=== PATIENT | female | born 1970 | race Caucasian/White ===

== ENCOUNTER 2016-12-15 05:16 | Inpatient (IN) | payer OTHER ==
[2016-12-15] VITALS (10 sets, daily range): BP systolic 106–136; BP diastolic 57–71; PULSE 68–108; RESP 18–29; TEMP 96.8–98.7; O2SAT 97–100
[~2016-12-15] VITALS: Ht 152.4 cm; Wt 70.5 kg
[~2016-12-15 05:16] MED LIST: OXYC-360 PO; PREN0.01 PO; SYNT112T PO
--- NOTE | 2016-12-15 06:40 | PD ---
HPI Chief Complaint: Chest Pain Time Seen by Provider: 06:39 Travel History International Travel<30 days: No Contact w/Intl Traveler<30days: No Traveled to known affect area: No History of Present Illness HPI 45-year-old female came to the emergency room with history of gastric pain radiating to the left side of her chest under the breast since 9 PM. Patient says she was feeling fine before that. The pain progressively Worsening and then she decided to come to the emergency room. She has been nauseous as well. She thinks her blood sugar might be u. Patient is diabetic. No aggravating or relieving factor. Patient has never had this kind of pain in the past. She looks very uncomfortable when I examined her. She was tachycardic in triage. [facility] Past Medical History Narrative Medical List of her home medications reviewed from the nursing note. Diabetes: Yes Past Surgical History Section: Yes (2 YEARS AGO) Social History Alcohol Use: Yes (WEEKENDS) Tobacco Use: No Substance Use: No Allergies-Medications (Allergen,Severity, Reaction): Coded Allergies: Demerol (Verified Allergy, Severe, Hives, 12/15/16) Lisinopril (Verified Allergy, Intermediate, COUGH, 12/15/16) Comments List of her allergies reviewed from the nursing note. Reported Meds & Prescriptions Reported Meds & Active Scripts Active Reported Losartan (Losartan Potassium) 25 Mg Tab 25 Mg PO DAILY Novolog Inj (Insulin Aspart) 1,000 Unit/10 Ml Vial 0 SQ DIRECTED Sliding Scale as directed. Lovastatin 10 Mg Tab 10 Mg PO DAILY Synthroid (Levothyroxine Sodium) 150 Mcg Tab 150 Mcg PO DAILY Narrative Medication List of her home medications reviewed from the nursing note. Review of Systems Except as stated in HPI: all other systems reviewed are Neg Physical Exam Narrative GENERAL: Awake, alert, anxious, significant distress SKIN: Focused skin assessment warm/dry. HEAD: Atraumatic. Normocephalic. EYES: Pupils equal and round. No scleral icterus. No injection or drainage. ENT: No nasal bleeding or discharge. Mucous membranes pink and moist. NECK: Trachea midline. No JVD. CARDIOVASCULAR: Regular rate and rhythm. No murmur appreciated. RESPIRATORY: No accessory muscle use. Clear to auscultation. Breath sounds equal bilaterally. GASTROINTESTINAL: Abdomen soft, non-tender, nondistended. Hepatic and splenic margins not palpable. MUSCULOSKELETAL: No obvious deformities. No clubbing. No cyanosis. No edema. NEUROLOGICAL: Awake and alert. No obvious cranial nerve deficits. Motor grossly within normal limits. Normal speech. PSYCHIATRIC: Appropriate mood and affect; insight and judgment normal. Data Data Last Documented VS Orders Electrocardiogram (12/15/16 ) Electrocardiogram (12/15/16 06:39) Basic Metabolic Panel (Bmp) (12/15/16 06:39) Ckmb (Isoenzyme) Profile (12/15/16 06:39) Complete Blood Count With Diff (12/15/16 06:39) Magnesium (Mg) (12/15/16 06:39) Prothrombin Time / Inr (Pt) (12/15/16 06:39) Act Partial Throm Time (Ptt) (12/15/16 06:39) Troponin I (12/15/16 06:39) Chest, Single Ap (12/15/16 06:39) Ecg Monitoring (12/15/16 06:39) Bilateral Bp Monitoring (12/15/16 06:39) Iv Access Insert/Monitor (12/15/16 06:39) Oximetry (12/15/16 06:39) Oxygen Administration (12/15/16 06:39) Sodium Chloride 0.9% Flush (Ns Flush) (12/15/16 06:45) D-Dimer (12/15/16 06:39) Morphine Inj (Morphine Inj) (12/15/16 07:30) Ondansetron Inj (Zofran Inj) (12/15/16 07:30) Sodium Chlor 0.9% 1000 Ml Inj (Ns 1000 M (12/15/16 07:30) Insulin Human Regular Inj (Novolin R Inj (12/15/16 08:00) Ct Pulmonary Angiogram (12/15/16 07:49) Iohexol 350 Inj (Omnipaque 350 Inj) (12/15/16 08:19) Admit Order (Ed Use Only) (12/15/16 08:57) Labs MDM Medical Decision Making Medical Screen Exam Complete: Yes Emergency Medical Condition: Yes Medical Record Reviewed: Yes Interpretation(s) Twelve-lead EKG was reviewed by me. Normal sinus rhythm, left axis deviation, nonspecific ST-T wave changes, tachycardia. Heart rate of 103 bpm Differential Diagnosis ACS, non-STEMI, PE, nonspecific chest Narrative Course 7:20 AM awaiting for the blood test result. Chest x-rays within normal limit. Case will be signed over to the oncoming ER physician. Procedures EKG Prior to Arrival: Karuna Blake Insulin Detemir Inj (Levemir Inj)1,000 unit/ 10 ML Vial30 Units SQ DAILY #0 VIAL Ref 0 levemir 25 units sq in morning. Prov:Rob Seo MD 12/20/16 Pantoprazole 40 Mg Tab40 Mg PO Q12HR #60 TAB Prov:Rob Seo MD 12/20/16 Kailash Clemente MD December 15, 2016 06:40 Concent Red Cell Distribution Width 15.4 % Platelet Count 434 TH/MM3 Mean Platelet Volume 8.0 FL Neutrophils (%) (Auto) 69.2 % Lymphocytes (%) (Auto) 19.6 % Monocytes (%) (Auto) 9.3 % Eosinophils (%) (Auto) 0.8 % Basophils (%) (Auto) 1.1 % Neutrophils # (Auto) 8.2 TH/MM3 Lymphocytes # (Auto) 2.3 TH/MM3 Monocytes # (Auto) 1.1 TH/MM3 Eosinophils # (Auto) 0.1 TH/MM3 Basophils # (Auto) 0.1 TH/MM3 CBC Comment DIFF FINAL Differential Comment MDM Medical Decision Making Medical Screen Exam Complete: Yes Emergency Medical Condition: Yes Medical Record Reviewed: Yes Interpretation(s) Twelve-lead EKG was reviewed by me. Normal sinus rhythm, left axis deviation, nonspecific ST-T wave changes, tachycardia. Heart rate of 103 bpm Differential Diagnosis ACS, non-STEMI, PE, nonspecific chest Narrative Course 7:20 AM awaiting for the blood test result. Chest x-rays within normal limit. Case will be signed over to the oncoming ER physician. Procedures EKG Prior to Arrival: Kailash Aleman MD December 15, 2016 06:40
[2016-12-15] MEDS ORDERED: LOVA10TA PO (06:41)
[2016-12-15] MEDS ORDERED: NOVOLOGP2 SQ (06:41)
[2016-12-15] MEDS ORDERED: LEVEMIR SQ (06:41)
[2016-12-15] MEDS ORDERED: LEVO.15 PO (06:41)
[2016-12-15] MEDS ORDERED: SODIUM CHLORIDE 0.9% FLUSH 10 ML FLUSH IVF PRN (06:45)
--- NOTE | 2016-12-15 06:52 | RADRPT ---
EXAM DATE/TIME: 12/15/2016 06:50 [facility] COMPARISON: No previous studies available for comparison. INDICATIONS : Medial chest pain with nausea x 1 day. MEDICAL HISTORY : Diabetes mellitus type I. SURGICAL HISTORY : None. ENCOUNTER: Initial ACUITY: 1 day PAIN SCORE: 7/10 LOCATION: Bilateral chest FINDINGS: A single view of the chest demonstrates the lungs to be symmetrically aerated without evidence of mas s, infiltrate or effusion. The cardiomediastinal contours are unremarkable. Osseous structures are intact. CONCLUSION: No acute disease. Gómez Chaudhry MD on December 15, 2016 at 6:50 Board Certified Radiologist. This report was verified electronically.
[2016-12-15 06:57] LABS: AUTOMATED NEUTROPHIL # 8.2 TH/MM3 (1.8-7.7); BASOPHIL # 0.1 TH/MM3 (0-0.2); BASOPHIL % 1.1 % (0.0-2.0); EOSINOPHIL # 0.1 TH/MM3 (0-0.4); EOSINOPHIL % 0.8 % (0.0-4.0); HEMATOCRIT 38.3 % (35.0-46.0); HEMO FLAGS DIFF FINAL; LYMPH % 19.6 % (9.0-44.0); LYMPHOCYTE # 2.3 TH/MM3 (1.0-4.8); MEAN CELL VOLUME 87.9 FL (80.0-100.0); MEAN CORPUSCULAR HEMOGLOBIN 27.8 PG (27.0-34.0); MEAN CORPUSCULAR HGB CONC 31.7 % (32.0-36.0); MONO % 9.3 % (0.0-8.0); NEUT % 69.2 % (16.0-70.0); PLATELET COUNT 434 TH/MM3 (150-450); RED BLOOD COUNT 4.36 MIL/MM3 (4.00-5.30); RED CELL DISTRIBUTION WIDTH 15.4 % (11.6-17.2); WHITE BLOOD COUNT 11.9 TH/MM3 (4.0-11.0)
[2016-12-15 07:17] LABS: INTERNATIONAL NORMALIZED RATIO 0.9 RATIO
[2016-12-15 07:26] LABS: ANION GAP 27 MEQ/L (5-15); BICARBONATE 9.7 MEQ/L (21.0-32.0); BLOOD UREA NITROGEN 15 MG/DL (7-18); CHLORIDE 94 MEQ/L (98-107); GLOMERULAR FILTRATION RATE 64 ML/MIN (>89); MAGNESIUM 2.1 MG/DL (1.5-2.5); SODIUM (NA) 131 MEQ/L (136-145)
[2016-12-15] MEDS ORDERED: ONDANSETRON HCL 4 MG/2 ML VIAL IV PUSH ONE (07:30)
[2016-12-15] MEDS ORDERED: MORPHINE SULFATE 4 MG/ML INJ IV PUSH ONE (07:30)
[2016-12-15] MEDS ORDERED: SODIUM CHLOR 0.9% 1000 ML INJ 1,000 ML IV ONE (07:30)
[2016-12-15 07:41] LABS: CREATINE KINASE 75 U/L (26-192)
[2016-12-15 07:51] LABS: APTT (PATIENT) 26.1 SEC (24.3-30.1)
[2016-12-15] MEDS ORDERED: INSULIN HUMAN REGULAR 1,000 UNITS/10 ML VIAL SQ ONE (08:00)
[2016-12-15] MEDS ORDERED: IOHEXOL 350 MG/ML 10 ML VIAL (for RAD DIAG) IV ONE (08:19)
--- NOTE | 2016-12-15 08:32 | RADRPT ---
EXAM DATE/TIME: 12/15/2016 08:13 [facility] COMPARISON: CHEST SINGLE AP, December 15, 2016, 6:50. INDICATIONS : Left sided chest pain today. IV CONTRAST: 69 cc Omnipaque 350 (iohexol) IV RADIATION DOSE: 22.96 CTDIvol (mGy) MEDICAL HISTORY : diabetes SURGICAL HISTORY : section. ENCOUNTER: Initial ACUITY: 1 day PAIN SCALE: 7/10 LOCATION: Left lower chest TECHNIQUE: Volumetric scanning of the chest was performed using a pulmonary embolism protocol MIP images were re constructed. Using automated exposure control and adjustment of the mA and/or kV according to patien t size, radiation dose was kept as low as reasonably achievable to obtain optimal diagnostic quality images. FINDINGS: PULMONARY ARTERIES: No filling defects are seen in the pulmonary arteries through the segmental level. LUNGS: There is no consolidation or pneumothorax . No concerning pulmonary nodule is visualized. PLEURAE: There is no pleural thickening or pleural effusion. MEDIASTINUM: There is good visualization of the great vessels of the middle mediastinum. No evidence of mediastin al or hilar adenopathy/mass. MUSCULOSKELETAL: No acute finding is identified. MISCELLANEOUS: The visualized upper abdominal organs demonstrate no acute abnormality. CONCLUSION: 1. No PE is visualized. 2. Additionally, no acute finding is identified within the chest. Please note that the complete lung bases were not imaged on this examination. Geovanny Camilo MD on December 15, 2016 at 8:27 Board Certified Radiologist. This report was verified electronically.
--- NOTE | 2016-12-15 08:57 | PD ---
Physical Exam Date Seen by Provider: December 15, 2016 Narrative Patient was signed out to me at 7 AM ending a chest pain workup. Patient reports the onset of chest pain about 9 PM. It is left-sided. It has been getting progressively worse. Patient does state that her pain is better following morphine. Data Data Last Documented VS Vital Signs Date Time Temp Pulse Resp B/P Pulse Ox O2 Delivery O2 Flow Rate FiO2 12/15/16 06:42 102 21 106/57 99 Room Air 12/15/16 05:18 97.8 Orders Electrocardiogram (12/15/16 ) Electrocardiogram (12/15/16 06:39) Basic Metabolic Panel (Bmp) (12/15/16 06:39) Ckmb (Isoenzyme) Profile (12/15/16 06:39) Complete Blood Count With Diff (12/15/16 06:39) Magnesium (Mg) (12/15/16 06:39) Prothrombin Time / Inr (Pt) (12/15/16 06:39) Act Partial Throm Time (Ptt) (12/15/16 06:39) Troponin I (12/15/16 06:39) Chest, Single Ap (12/15/16 06:39) Ecg Monitoring (12/15/16 06:39) Bilateral Bp Monitoring (12/15/16 06:39) Iv Access Insert/Monitor (12/15/16 06:39) Oximetry (12/15/16 06:39) Oxygen Administration (12/15/16 06:39) Sodium Chloride 0.9% Flush (Ns Flush) (12/15/16 06:45) D-Dimer (12/15/16 06:39) Morphine Inj (Morphine Inj) (12/15/16 07:30) Ondansetron Inj (Zofran Inj) (12/15/16 07:30) Sodium Chlor 0.9% 1000 Ml Inj (Ns 1000 M (12/15/16 07:30) Insulin Human Regular Inj (Novolin R Inj (12/15/16 08:00) Ct Pulmonary Angiogram (12/15/16 07:49) Iohexol 350 Inj (Omnipaque 350 Inj) (12/15/16 08:19) Labs Laboratory Tests Test 12/15/16 06:41 White Blood Count 11.9 TH/MM3 Red Blood Count 4.36 MIL/MM3 Hemoglobin 12.1 GM/DL Hematocrit 38.3 % Mean Corpuscular Volume 87.9 FL Mean Corpuscular Hemoglobin 27.8 PG Mean Corpuscular Hemoglobin 31.7 % Concent Red Cell Distribution Width 15.4 % Platelet Count 434 TH/MM3 Mean Platelet Volume 8.0 FL Neutrophils (%) (Auto) 69.2 % Lymphocytes (%) (Auto) 19.6 % Monocytes (%) (Auto) 9.3 % Eosinophils (%) (Auto) 0.8 % Basophils (%) (Auto) 1.1 % Neutrophils # (Auto) 8.2 TH/MM3 Lymphocytes # (Auto) 2.3 TH/MM3 Monocytes # (Auto) 1.1 TH/MM3 Eosinophils # (Auto) 0.1 TH/MM3 Basophils # (Auto) 0.1 TH/MM3 CBC Comment DIFF FINAL Differential Comment Prothrombin Time 10.0 SEC Prothromb Time International 0.9 RATIO Ratio Activated Partial 26.1 SEC Thromboplast Time D-Dimer Quantitative (PE/DVT) 0.79 MG/L FEU Sodium Level 131 MEQ/L Potassium Level 5.0 MEQ/L Chloride Level 94 MEQ/L Carbon Dioxide Level 9.7 MEQ/L Anion Gap 27 MEQ/L Blood Urea Nitrogen 15 MG/DL Creatinine 0.94 MG/DL Estimat Glomerular Filtration 64 ML/MIN Rate Random Glucose 542 MG/DL Calcium Level 9.4 MG/DL Magnesium Level 2.1 MG/DL Total Creatine Kinase 75 U/L Troponin I LESS THAN 0.02 NG/ML MDM Supervised Visit with DARRYL: No Narrative Course CBC & BMP Diagram 12/15/16 06:41 Initial cardiac enzymes are negative. D-dimer is 0.79. She has subsequently had a CT to rule out PE. It is negative. The patient has been given insulin for her glucose of 542. Patient is amenable to admission to the chest pain center for further evaluation. Diagnosis Primary Impression: Chest pain Qualified Code: R07.9 - Chest pain, unspecified type Admitting Information Admitting Physician Requests: Observation Condition: Stable Mague Ayers MD December 15, 2016 08:57
[2016-12-15] MEDS ORDERED: SODIUM CHLOR 0.9% 1000 ML INJ 1,000 ML IV SCH (11:06)
[2016-12-15] MEDS ORDERED: GLUCAGON 1 MG/ML VIAL IM/SQ PRN (11:30)
[2016-12-15] MEDS ORDERED: DEXTROSE 50% IN WATER 50 ML VIAL(D50) IV PRN (11:30)
[2016-12-15] MEDS ORDERED: MAGNESIUM HYDROXIDE SUSP 30 ML CUP PO PRN (12:15)
[2016-12-15] MEDS ORDERED: TEMAZEPAM 15 MG CAP PO PRN (12:15)
[2016-12-15] MEDS ORDERED: SODIUM CHLORIDE 0.9% FLUSH 10 ML FLUSH IV FLUSH PRN (12:15)
[2016-12-15] MEDS ORDERED: NALOXONE HCL 0.4 MG/ML AMP IV PRN (12:15)
[2016-12-15 13:16] LABS: HEMOGLOBIN A1a 1.9 %; HEMOGLOBIN Ao 74.4 %; HEMOGLOBIN LA1C 4.4 %
[2016-12-15] MEDS ORDERED: LOSA25TA PO (13:20)
[2016-12-15 13:36] LABS: BLOOD, URINE SMALL (NEG); COMMENT (UR) CULT NOT INDICATED; CULTURE IF INDICATED CULT NOT INDICATED; GLUCOSE,URINE 1000 mg/dL (NEG); KETONE, URINE 150 mg/dL (NEG); MUCUS URINE FEW /lpf (OCC); NITRITE,URINE NEG (NEG); SQUAMOUS EPITHELIAL CELL URINE 1 /hpf (0-5); URINE COLOR LIGHT-YELLOW (YELLW/STRAW)
[2016-12-15 13:40] LABS: BICARBONATE 10.5 MEQ/L (21.0-32.0); POTASSIUM 4.7 MEQ/L (3.5-5.1)
--- NOTE | 2016-12-15 13:42 | HHI.HP ---
HPI Service [facility] Hospitalists Primary Care Physician Troy Anderson M.D. Admission Diagnosis chest pain Chief Complaint: chest pain Travel History International Travel<30 Days: No Contact w/Intl Traveler <30 Da: No Traveled to Known Affected Are: No History of Present Illness Patient is a pleasant 45-year-old female with history of type 1 diabetes 25 years. Patient was seen by her primary care physician, Dr. Anderson, last week. Patient had a battery of laboratory data performed. Patient reports that her hemoglobin A1c was 10.3. I cannot find this in her [facility] records. However, last hemoglobin A1c (07/20/15 ) was 10.2. Patient's fasting glucose was elevated at 424 (12/04/16), but patient's CO2 was normal at 24. Patient takes NovoLog 8 units before breakfast and 10 units before lunch and dinner. Patient also takes Levemir 15 units in the a.m. and 20 units in the p.m. At last appointment with Dr. Anderson. Patient had stated that she wants to get back in with endocrinology, specifically she wishes to see Cassidy STONE at Dr. Hoffman office. Apparently, patient has previously followed with Cassidy STONE. Patient states that she previously used an insulin pump but this was prior to her last 8 years ago. Patient presented to the ER yesterday evening with complaint of chest pain. Patient states that the chest pain was at her lower sternum and radiated to her left chest. There was no radiation to her shoulder, arm, or jaw. Patient states that the episode started at 9 PM. It was intermittent lasting approximately 15 minutes, and did not resolve until 5 AM this morning when she received morphine in the ER. Patient denies previous such episodes. Patient describes the pain as moderate and associated with nausea and shortness of breath. Patient feels the shortness of breath may have been anxiety. Initially patient attributed the chest pain to indigestion as she was at a graduation event yesterday. Patient took aspirin and Tums with only mild relief. Patient denies any palliating factors. Patient denies any provoking factors patient denies associated vomiting or diaphoresis. Patient was initially admitted to the chest pain center. Dr. Garrido, the attending physician for the chest pain center, noted that the patient's labs were consistent with diabetic ketoacidosis with elevated blood sugar and low CO2. He requested that the patient be transferred to my service and I agreed. Review of Systems Constitutional: DENIES: Diaphoretic episodes, Fatigue, Fever, Weight gain, Weight loss, Chills, Dizziness, Change in appetite, Night Sweats Endocrine: DENIES: Abnorml menstrual pattern, Heat/cold intolerance, Polydipsia , Polyuria, Polyphagia Eyes: DENIES: Blurred vision, Diplopia, Eye inflammation, Eye pain, Vision loss , Photosensitivity, Double Vision Ears, nose, mouth, throat: DENIES: Tinnitus, Hearing loss, Vertigo, Nasal discharge, Oral lesions, Throat pain, Hoarseness, Ear Pain, Running Nose, Epistaxis, Sinus Pain, Toothache, Odynophagia Respiratory: DENIES: Apneas, Cough, Snoring, Wheezing, Hemoptysis, Sputum production, Shortness of breath Cardiovascular: COMPLAINS OF: Chest pain, DENIES: Palpitations, Syncope, Dyspnea on Exertion, PND, Lower Extremity Edema, Orthopnea, Claudication Gastrointestinal: DENIES: Abdominal pain, Black stools, Bloody stools, BRB per rectum, Constipation, Diarrhea, GERD, Nausea, Reflux, Vomiting, Difficulty Swallowing, Anorexia Genitourinary: DENIES: Urinary frequency, Urinary incontinence, Urgency, Hematuria, Dysuria, Nocturia Musculoskeletal: DENIES: Joint pain, Muscle aches, Stiffness, Joint Swelling, Back pain, Neck pain Integumentary: DENIES: Abnormal pigmentation, Pruritus, Rash, Nail changes, Breast masses, Breast skin changes, Nipple discharge Hematologic/lymphatic: DENIES: Bruising, Lymphadenopathy Immunologic/allergic: DENIES: Eczema, Urticaria Neurologic: DENIES: Abnormal gait, Headache, Localized weakness, Paresthesias, Seizures, Speech Problems, Tremor, Poor Balance Psychiatric: COMPLAINS OF: Anxiety, DENIES: Confusion, Mood changes, Depression, Hallucinations, Agitation, Suicidal Ideation, Homicidal Ideation, Delusions, History of Bipolar, History of Schizophrenia Past Family Social History Past Medical History 1) diabetes, type 125 years - Recently referred to endocrinology by her PCP, patient has previously seen Cassidy Martell PA-C in the office of Dr. 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 SKIN: No rashes, ecchymoses or lesions. Cool and dry. HEAD: Atraumatic. Normocephalic. No temporal or scalp tenderness. EYES: Pupils equal round and reactive. Extraocular motions intact. No scleral icterus. No injection or drainage. ENT: Nose without bleeding, purulent drainage or septal hematoma. Throat without erythema, tonsillar hypertrophy or exudate. Uvula midline. Airway patent. NECK: Trachea midline. No JVD or lymphadenopathy. Supple, nontender, no meningeal signs. CARDIOVASCULAR: Regular rate and rhythm without murmurs, gallops, or rubs. RESPIRATORY: Clear to auscultation. Breath sounds equal bilaterally. No wheezes , rales, or rhonchi. GASTROINTESTINAL: Abdomen soft, non-tender, nondistended. No hepato-splenomegaly , or palpable masses. No guarding. MUSCULOSKELETAL: Extremities without clubbing, cyanosis, or edema. No joint tenderness, effusion, or edema noted. No calf tenderness. Negative Homans sign bilaterally. NEUROLOGICAL: Awake and alert. Cranial nerves II through XII intact. Motor and sensory grossly within normal limits. Five out of 5 muscle strength in all muscle groups. Normal speech. Laboratory Laboratory Tests Test 12/15/16 12/15/16 06:41 09:40 White Blood Count 11.9 Red Blood Count 4.36 Hemoglobin 12.1 Hematocrit 38.3 Mean Corpuscular Volume 87.9 Mean Corpuscular Hemoglobin 27.8 Mean Corpuscular Hemoglobin 31.7 Concent Red Cell Distribution Width 15.4 Platelet Count 434 Mean Platelet Volume 8.0 Neutrophils (%) (Auto) 69.2 Lymphocytes (%) (Auto) 19.6 Monocytes (%) (Auto) 9.3 Eosinophils (%) (Auto) 0.8 Basophils (%) (Auto) 1.1 Neutrophils # (Auto) 8.2 Lymphocytes # (Auto) 2.3 Monocytes # (Auto) 1.1 Eosinophils # (Auto) 0.1 Basophils # (Auto) 0.1 CBC Comment DIFF FINAL Differential Comment Prothrombin Time 10.0 Prothromb Time International 0.9 Ratio Activated Partial 26.1 Thromboplast Time D-Dimer Quantitative (PE/DVT) 0.79 Sodium Level 131 Potassium Level 5.0 Chloride Level 94 Carbon Dioxide Level 9.7 Anion Gap 27 Blood Urea Nitrogen 15 Creatinine 0.94 Estimat Glomerular Filtration 64 Rate Random Glucose 542 Calcium Level 9.4 Magnesium Level 2.1 Total Creatine Kinase 75 Troponin I LESS THAN 0.02 LESS THAN 0.02 Result Diagram: 12/15/1641 12/15/[address] Angiography 12/15/16 0749 Signed Impressions: Service Date/Time: Thursday, December 15, 2016 08:13 - CONCLUSION: 1. No PE is visualized. 2. Additionally, no acute finding is identified within the chest. Please note that the complete lung bases were not imaged on this examination. Geovnany Camilo MD Chest X-Ray 12/15/16 0639 Signed Impressions: Service Date/Time: Thursday, December 15, 2016 06:50 - CONCLUSION: No acute disease. Gómez Chaudhry MD Septic Shock Reassessment Heart: Regular rate and rhythm Lungs: Clear Skin: Warm Peripheral Pulses: Bounding Right Radial Bounding Left Radial Bounding Right Popliteal Bounding Left Popliteal Bounding Right Dorsalis Pedis Bounding Left Dorsalis Pedis Bounding Right Posterior Tibial Bounding Left Posterior Tibial Capillary Refill: Brisk Assessment and Plan Problem List: (1) DKA (diabetic ketoacidoses) Status: Acute Plan: - Patient's blood sugars have improved - Patient still with low CO2 and anion gap - pt will require insulin drip in the ICU until CO2 and anion gap have resolved to normal - case d/w [facility], Dr. Coughlin - I will initiate DKA protocol - Pt to receive insulin gtt per protocol - pt to receive IVFs per protocol - pt to receive electrolyte replacement per protocol (2) Chest pain Status: Acute Plan: - Obtain serial cardiac enzymes - Obtain serial EKGs - Patient will need Lexiscan once medically stabilized - Obtain fasting lipid panel (3) HTN (hypertension) Status: Acute Plan: - Continue losartan (4) Hypothyroid Status: Chronic Plan: - Continue Synthroid Physician Certification 2 Midnight Certification Type: Admission for Inpatient Services Order for Inpatient Services The services are ordered in accordance with Medicare regulations or non- Medicare payer requirements, as applicable. In the case of services not specified as inpatient-only, they are appropriately provided as inpatient services in accordance with the 2-midnight benchmark. Estimated LOS (days): 3 3 days is the estimated time the patient will need to remain in the hospital, assuming treatment plan goals are met and no additional complications. Post-Hospital Plan: Home Problem Qualifiers (1) DKA (diabetic ketoacidoses): Qualified Code: E10.10 - Diabetic ketoacidosis without coma associated with type 1 diabetes mellitus (2) Chest pain: Qualified Code: R07.9 - Chest pain, unspecified type (3) HTN (hypertension): Qualified Code: I10 - Essential hypertension (4) Hypothyroid: Qualified Code: E03.9 - Hypothyroidism, unspecified type Charlie Brady DO December 15, 2016 13:42
[2016-12-15 13:45] LABS: CREATINE KINASE 62 U/L (26-192)
[2016-12-15] MEDS: SODIUM CHLOR 0.9% 1000 ML INJ 1,000 ML IV SCH ×4 (13:47→22:56)
[2016-12-15] MEDS: DEXT 5%-NACL 0.9% 1000 ML INJ 1,000 ML IV SCH ×4 (13:47→23:18)
[2016-12-15] MEDS ORDERED: INSULIN REGULAR (IV INFUSION) 100 UNITS in SODIUM CHLORIDE 0.9% INJ 99 ML IV SCH ×2 (14:00→15:00)
[2016-12-15] MEDS ORDERED: CHLORHEXIDINE GLUCONATE 2 % 1 PACK (2 CLOTHS) TOP PRN ×2 (14:00→15:00)
[2016-12-15] MEDS ORDERED: MISCELLANEOUS NURSING INFORMATION XX SCH ×2 (14:00→15:00)
[2016-12-15] MEDS ORDERED: POTASSIUM CHLOR 20 MEQ PREMIX 100 ML IV PRN ×10 (14:00→15:00)
[2016-12-15] MEDS ORDERED: SODIUM PHOSPHATE INJ 15 MMOL in SODIUM CHLORIDE 0.9% INJ 100 ML IV PRN ×2 (14:00→15:00)
[2016-12-15] MEDS ORDERED: SODIUM BICARBONATE 8.4% SOLN 50 MEQ/50 ML VIAL IV PRN ×4 (14:00→15:00)
[2016-12-15 14:28] LABS: BLOOD GAS BASE EXCESS -20.6 mmol/L (-2-2); BLOOD GAS CARBOXYHEMOGLOBIN 1.9 % (0-4); BLOOD GAS HCO3 7 mmol/L (22-26); BLOOD GAS METHEMOGLOBIN 0.9 % (0-2); BLOOD GAS O2 HGB SATURATION 95 % (90-100); BLOOD GAS OXYGEN CONTENT 15.6 Vol % (12.0-20.0); BLOOD GAS PCO2 19 mmHg (38-42); BLOOD GAS PO2 115 mmHG (61-120); BLOOD GAS TOTAL HGB 11.5 G/DL (12.0-16.0); CRITICAL VALUE YES; DRAW SITE LT RADIAL; FIO2 21 %; NUMBER OF ARTERIAL PUNCTURES 1; OXYGEN DEVICE ROOM AIR; STAT NO; TEMP CORR TO 98.6; ULNAR PULSE PRESENT
[2016-12-15] MEDS ORDERED: POTASSIUM CHLOR 40 MEQ PREMIX 100 ML IV PRN ×2 (15:00)
--- NOTE | 2016-12-15 15:16 | EKG ---
Date Performed: 12/15/2016 Time Performed: 05:28:19 PTAGE: 45 years EKG: SINUS TACHYCARDIA LEFT ATRIAL ENLARGEMENT MARKED LEFT AXIS DEVIATION PATTERN CONSISTENT WIT H PULMONARY DISEASE ABNORMAL ECG NO PREVIOUS TRACING DOCTOR: Rob Garrido Interpretating Date/Time 12/15/2016 15:16:07
--- NOTE | 2016-12-15 15:39 | EKG ---
Date Performed: 12/15/2016 Time Performed: 09:43:12 PTAGE: 45 years EKG: SINUS TACHYCARDIA POSSIBLE LEFT ATRIAL ENLARGEMENT PATTERN CONSISTENT WITH PULMONARY DISEAS E LEFT ANTERIOR FASCICULAR BLOCK ABNORMAL ECG PREVIOUS TRACING : 12/15/2016 05. Since previous tracing, no significant change noted DOCTOR: Rob Garrido Interpretating Date/Time 12/15/2016 15:39:32
[2016-12-15] MEDS: PRAVASTATIN SOD 10 MG TAB PO SCH (15:43)
[2016-12-15] MEDS: ONDANSETRON HCL 4 MG/2 ML VIAL IVP PRN ×2 (15:44→23:02)
[2016-12-15] MEDS ORDERED: INSULIN ASPART SUPPLEMENTAL SCALE SQ SCH (16:00)
--- NOTE | 2016-12-15 16:00 | MB ---
cc: STEW ENCINAS M.D. DATE OF CONSULTATION: 12/15/2016. HISTORY OF PRESENT ILLNESS: The patient is a 45-year-old female with type 1 diabetes mellitus for over twenty years, hypothyroidism and hyperlipidemia who presented to the [facility] Emergency Department last evening with a complaint of chest pain. She is currently chest pain-free. Her laboratory data showed DKA with a blood sugar of 542 and anion gap of 27. In addition, the patient had a bicarb of 9.7 and was hyponatremic with sodium level of 131. In the emergency room, she was given a 1 liter bolus of normal saline in addition to 9 units of IV regular insulin at 8 o'clock this morning. She was admitted to Dr. Brady' service. The patient had repeat labs this afternoon, which still show DKA with anion gap of 23 and a bicarb of 10.5. ABG was performed on room air showed metabolic acidosis with a pH of 7.17, CO2 19, pAO2 115, bicarb of 7 and sats of 95%. Critical care medicine was consulted for critical care management. The patient was transferred to the intensive care unit where she will be started on insulin drip per DKA protocol. Currently she is asymptomatic. She denies any chest pain, shortness of breath, cough or any constitutional symptoms. In addition, she denies any nausea, vomiting or abdominal pain. Her troponins are negative x2. Her hemoglobin A1c is 10.3. Urinalysis is positive for glucose and ketones and negative for nitrite and leukocyte esterase. The patient underwent CT angiography this morning, which showed which showed no evidence of PE. Chest x-ray showed no acute disease as well. PAST MEDICAL HISTORY: Past medical history significant for: 1. Type 1 diabetes mellitus. 2. Hyperlipidemia. 3. Hypothyroidism. 4. Vitamin D deficiency. 5. Insomnia. 6. Migraines. PAST SURGICAL HISTORY: 1. Previous x2. 2. Previous tubal ligation. ALLERGIES: 1. DARVOCET. 1. LISINOPRIL. FAMILY HISTORY: Coronary artery disease runs in the family. SOCIAL HISTORY: Occasional drinker, nonsmoker. MEDICATIONS: Her medications include: 1. Losartan. 2. Insulin. 3. Levemir. 4. Synthroid. REVIEW OF SYSTEMS: As per the history of present illness. The rest of the review of systems is unremarkable. PHYSICAL EXAMINATION: GENERAL: This is a 45-year-old female lying in bed in no acute distress on room air oxygen. VITAL SIGNS: Afebrile, pulse of 111, blood pressure 113/59, saturation 100% on room air. HEAD, EYES, EARS, NOSE, THROAT: Normocephalic and atraumatic. Pupils equal, round and reactive to light and accommodation. Extraocular muscles intact. Conjunctivae are pink. Nonicteric sclerae. Oral mucosa within normal limits. NECK: The neck is supple. No jugular venous distention, adenopathy or thyromegaly. Trachea in the midline. CARDIOVASCULAR: Tachycardic. Normal S1 and S2. No murmurs, rubs or gallops noted. PULMONARY: Bilateral equal air entry. No rales or wheezing. ABDOMEN: The abdomen is soft, nontender and no distention. Positive bowel sounds. EXTREMITIES: No cyanosis, clubbing or edema. NEUROLOGIC: No focal sensory deficit. LABORATORY DATA: Sodium of 137, potassium 4.7, chloride 104, CO2 10, BUN 15, creatinine 0.92, glucose 267, hemoglobin A1c 10.3. Troponin less than 0.02 x2. WBC 11.9, hemoglobin 12.1, hematocrit 38, platelet count 434,000. RADIOGRAPHY: CT angiogram of the chest showed no evidence of PE. Chest x-ray showed no acute disease. IMPRESSION: 1. Diabetic ketoacidosis. 2. Anion gap metabolic acidosis. 3. History of type 1 diabetes mellitus. 4. Chest pain, resolved. 5. Mild leukocytosis likely stress-related. 6. Hypothyroidism. 7. Hyperlipidemia. PLAN: 1. Monitor neuro status. The patient is awake, alert. 2. Oxygen p.r.n. to maintain sats above 92%. 3. Monitor heart rate and blood pressure and maintain MAP greater 65 mmHg. 4. Monitor renal function, intake and output and electrolyte replacement per protocol. 5. IV fluids per DKA protocol. The patient will be on normal saline at 250 mL/hour. Once her blood sugar is less than 200, will begin D5 normal saline at 200/hour. 6. Start insulin drip per DKA protocol. 7. Monitor electrolytes, magnesium and phosphorus q. 6 hour and beta-hydroxybutyrate q. 12-hour. 8. Monitor for signs of infection, which include fever and WBC. Panculture if spikes a fever. Her leukocytosis is likely reactive. 9. Continue with Synthroid 115 micrograms p.o. daily. 10. Check a baseline TSH level. 11. Keep n.p.o. for now and place on Protonix 40 milligrams p.o. daily. 12. GI prophylaxis with Protonix 40 milligrams daily and DVT prophylaxis with SCDs and heparin subcu. Further recommendations will be based on the hospital course. MD LILIAN Dugan/MARINA /3:07 PM /3:48 PM
[2016-12-15 18:10] LABS: BETA-HYDROXYBUTYRATE 7.5 MMOL/L (0.00-0.39)
[2016-12-15 20:37] LABS: ANION GAP 13 MEQ/L (5-15); BICARBONATE 16.7 MEQ/L (21.0-32.0); BLOOD UREA NITROGEN 12 MG/DL (7-18); CHLORIDE 111 MEQ/L (98-107); GLOMERULAR FILTRATION RATE 59 ML/MIN (>89); MAGNESIUM 1.9 MG/DL (1.5-2.5); POTASSIUM 4.1 MEQ/L (3.5-5.1); SODIUM (NA) 141 MEQ/L (136-145)
[2016-12-15 20:55] LABS: CREATINE KINASE 59 U/L (26-192)
[2016-12-15] MEDS ORDERED: INSULIN DETEMIR 100 UNITS/ML VIAL SQ SCH (21:00)
[2016-12-15] MEDS: SODIUM CHLORIDE 0.9% FLUSH 10 ML FLUSH IV FLUSH SCH (21:00)
--- NOTE | 2016-12-15 21:22 | EKG ---
Date Performed: 12/15/2016 Time Performed: 20:38:15 PTAGE: 45 years EKG: SINUS TACHYCARDIA MARKED LEFT AXIS DEVIATION ABNORMAL ECG NO SIGNIFICANT CHANGE FROM PRIOR ELECTROCARDIOGRAM. PREVIOUS TRACING : 12/15/2016 09.43 DOCTOR: Marcos Ha Interpretating Date/Time 12/15/2016 21:20:45
[2016-12-15] MEDS: ACETAMINOPHEN 325 MG TAB PO PRN (23:01)
[2016-12-16] VITALS (12 sets, daily range): BP systolic 110–144; BP diastolic 56–76; PULSE 88–98; RESP 16–24; TEMP 98.2–99.4; O2SAT 96–100
[2016-12-16] MEDS: DEXT 5%-NACL 0.9% 1000 ML INJ 1,000 ML IV SCH ×4 (00:56→07:46)
[2016-12-16 00:57] LABS: BICARBONATE 14.6 MEQ/L (21.0-32.0); MAGNESIUM 1.9 MG/DL (1.5-2.5)
[2016-12-16 01:34] LABS: BETA-HYDROXYBUTYRATE 6.11 MMOL/L (0.00-0.39)
[2016-12-16] MEDS: SODIUM CHLOR 0.9% 1000 ML INJ 1,000 ML IV SCH ×5 (01:47→09:47)
[2016-12-16] MEDS ORDERED: CHLORHEXIDINE GLUCONATE 2 % 1 PACK (2 CLOTHS) TOP SCH (04:00)
[2016-12-16] MEDS: CHLORHEXIDINE GLUCONATE 2 % 1 PACK (2 CLOTHS) TOP SCH (04:00)
[2016-12-16 06:10] LABS: BASOPHIL # 0.1 TH/MM3 (0-0.2); BASOPHIL % 0.9 % (0.0-2.0); EOSINOPHIL # 0.1 TH/MM3 (0-0.4); EOSINOPHIL % 0.7 % (0.0-4.0); HEMATOCRIT 32.2 % (35.0-46.0); HEMO FLAGS DIFF FINAL; LYMPH % 9.3 % (9.0-44.0); MEAN CELL VOLUME 84.3 FL (80.0-100.0); MEAN CORPUSCULAR HEMOGLOBIN 27.6 PG (27.0-34.0); MEAN CORPUSCULAR HGB CONC 32.7 % (32.0-36.0); MONO % 10.4 % (0.0-8.0); NEUT % 78.7 % (16.0-70.0); PLATELET COUNT 364 TH/MM3 (150-450); RED BLOOD COUNT 3.83 MIL/MM3 (4.00-5.30); RED CELL DISTRIBUTION WIDTH 15.4 % (11.6-17.2); WHITE BLOOD COUNT 10.2 TH/MM3 (4.0-11.0)
[2016-12-16] MEDS: LEVOTHYROXINE SODIUM 150 MCG TAB PO SCH (06:27)
[2016-12-16 06:40] LABS: BICARBONATE 17.3 MEQ/L (21.0-32.0); POTASSIUM 3.6 MEQ/L (3.5-5.1)
[2016-12-16] MEDS: PRAVASTATIN SOD 10 MG TAB PO SCH (07:45)
[2016-12-16] MEDS: LOSARTAN 25 MG TAB PO SCH (07:45)
[2016-12-16] MEDS: SODIUM CHLORIDE 0.9% FLUSH 10 ML FLUSH IV FLUSH SCH ×2 (07:46→21:25)
--- NOTE | 2016-12-16 07:56 | HHI.CCPN ---
Subjective Remarks/Hospital Course The patient is a 45-year-old female with type 1 diabetes mellitus for over twenty years, hypothyroidism and hyperlipidemia who presented to the [facility] Emergency Department last evening with a complaint of chest pain. She is currently chest pain-free. Her laboratory data showed DKA with a blood sugar of 542 and anion gap of 27. In addition, the patient had a bicarb of 9.7 and was hyponatremic with sodium level of 131. In the emergency room, she was given a 1 liter bolus of normal saline in addition to 9 units of IV regular insulin at 8 o'clock this morning. She was admitted to Dr. Brady' service. The patient had repeat labs this afternoon, which still show DKA with anion gap of 23 and a bicarb of 10.5. ABG was performed on room air showed metabolic acidosis with a pH of 7.17, CO2 19, pAO2 115, bicarb of 7 and sats of 95%. Critical care medicine was consulted for critical care management. The patient was transferred to the intensive care unit where she will be started on insulin drip per DKA protocol. Currently she is asymptomatic. She denies any chest pain, shortness of breath, cough or any constitutional symptoms. In addition, she denies any nausea, vomiting or abdominal pain. Her troponins are negative x2. Her hemoglobin A1c is 10.3. Urinalysis is positive for glucose and ketones and negative for nitrite and leukocyte esterase. The patient underwent CT angiography this morning, which showed which showed no evidence of PE. Chest x-ray showed no acute disease as well. 12/16 No events overnight on insulin drip 2.4u/hr, AG is improving down to 14 this morning. Afebrile. Objective Vital Signs Date Time Temp Pulse Resp B/P Pulse Ox O2 Delivery O2 Flow Rate FiO2 12/16/16 06:00 92 12/16/16 04:00 98.4 24 119/65 96 12/15/16 06:42 Room Air Intake and Output 12/15/16 12/15/16 12/16/16 08:00 16:00 00:00 Intake Total 685 ml 937 ml Output Total 600 ml 1200 ml Balance 85 ml -263 ml Result Diagram: 12/16/16 0555 12/16/16 0555 Other Results Laboratory Tests Test 12/15/16 12/15/16 12/15/16 12/15/16 09:40 12:50 13:08 14:18 Troponin I LESS THAN 0.02 LESS THAN 0.02 NG/ML NG/ML Urine Color LIGHT-YELLOW Urine Turbidity CLEAR Urine pH 5.0 Urine Specific [place] 1.031 Urine Protein 30 mg/dL Urine Glucose (UA) 1000 mg/dL Urine Ketones 150 mg/dL Urine Occult Blood SMALL Urine Nitrite NEG Urine Bilirubin NEG Urine Urobilinogen LESS THAN 2.0 MG/DL Urine Leukocyte Esterase NEG Urine RBC LESS THAN 1 /hpf Urine WBC LESS THAN 1 /hpf Urine Squamous Epithelial 1 /hpf Cells Urine Mucus FEW /lpf Urine Yeast (Budding) RARE Microscopic Urinalysis Comment CULT NOT INDICATED Sodium Level 137 MEQ/L Potassium Level 4.7 MEQ/L Chloride Level 104 MEQ/L Carbon Dioxide Level 10.5 MEQ/L Anion Gap 23 MEQ/L Blood Urea Nitrogen 15 MG/DL Creatinine 0.92 MG/DL Estimat Glomerular Filtration 65 ML/MIN Rate Random Glucose 267 MG/DL Calcium Level 8.8 MG/DL Phosphorus Level 3.2 MG/DL Total Creatine Kinase 62 U/L B-Hydroxybutyrate 7.50 MMOL/L Blood Gas Puncture Site LT RADIAL Blood Gas Patient Temperature 98.6 Blood Gas HCO3 7 mmol/L Blood Gas Base Excess -20.6 mmol/L Blood Gas Oxygen Saturation 95 % Arterial Blood pH 7.17 Arterial Blood Partial 19 mmHg Pressure CO2 Arterial Blood Partial 115 mmHG Pressure O2 Arterial Blood Oxygen Content 15.6 Vol % Arterial Blood 1.9 % Carboxyhemoglobin Arterial Blood Methemoglobin 0.9 % Blood Gas Hemoglobin 11.5 G/DL Oxygen Delivery Device ROOM AIR Blood Gas Inspired Oxygen 21 % Test 12/15/16 12/15/16 12/16/16 12/16/16 14:54 19:27 00:11 05:55 Nasal Screen MRSA (PCR) MRSA NOT DETECTED Sodium Level 141 MEQ/L 142 MEQ/L 144 MEQ/L Potassium Level 4.1 MEQ/L 4.0 MEQ/L 3.6 MEQ/L Chloride Level 111 MEQ/L 110 MEQ/L 113 MEQ/L Carbon Dioxide Level 16.7 MEQ/L 14.6 MEQ/L 17.3 MEQ/L Anion Gap 13 MEQ/L 17 MEQ/L 14 MEQ/L Blood Urea Nitrogen 12 MG/DL 11 MG/DL 10 MG/DL Creatinine 1.00 MG/DL 0.87 MG/DL 0.77 MG/DL Estimat Glomerular Filtration 59 ML/MIN 69 ML/MIN 80 ML/MIN Rate Random Glucose 128 MG/DL 230 MG/DL 198 MG/DL Calcium Level 7.9 MG/DL 7.5 MG/DL 7.5 MG/DL Phosphorus Level 0.9 MG/DL 1.8 MG/DL 1.2 MG/DL Magnesium Level 1.9 MG/DL 1.9 MG/DL 2.0 MG/DL Total Creatine Kinase 59 U/L Troponin I LESS THAN 0.02 NG/ML B-Hydroxybutyrate 6.11 MMOL/L White Blood Count 10.2 TH/MM3 Red Blood Count 3.83 MIL/MM3 Hemoglobin 10.5 GM/DL Hematocrit 32.2 % Mean Corpuscular Volume 84.3 FL Mean Corpuscular Hemoglobin 27.6 PG Mean Corpuscular Hemoglobin 32.7 % Concent Red Cell Distribution Width 15.4 % Platelet Count 364 TH/MM3 Mean Platelet Volume 7.1 FL Neutrophils (%) (Auto) 78.7 % Lymphocytes (%) (Auto) 9.3 % Monocytes (%) (Auto) 10.4 % Eosinophils (%) (Auto) 0.7 % Basophils (%) (Auto) 0.9 % Neutrophils # (Auto) 8.0 TH/MM3 Lymphocytes # (Auto) 1.0 TH/MM3 Monocytes # (Auto) 1.1 TH/MM3 Eosinophils # (Auto) 0.1 TH/MM3 Basophils # (Auto) 0.1 TH/MM3 CBC Comment DIFF FINAL Differential Comment Imaging Last Impressions CT Angiography 12/15/16 0749 Signed Impressions: Service Date/Time: Thursday, December 15, 2016 08:13 - CONCLUSION: 1. No PE is visualized. 2. Additionally, no acute finding is identified within the chest. Please note that the complete lung bases were not imaged on this examination. Geovanny Camilo MD Chest X-Ray 12/15/16 0685 Signed Impressions: Service Date/Time: Thursday, December 15, 2016 06:50 - CONCLUSION: No acute disease. Gómez Chaudhry MD Objective Remarks GENERAL: Patient is lyingin bed in NAD SKIN: Warm and dry. HEAD: Normocephalic. EYES: No scleral icterus. No injection or drainage. NECK: Supple, trachea midline. No JVD or lymphadenopathy. CARDIOVASCULAR: Regular rate and rhythm without murmurs, gallops, or rubs. RESPIRATORY: Breath sounds equal bilaterally. No accessory muscle use. GASTROINTESTINAL: Abdomen soft, non-tender, nondistended. MUSCULOSKELETAL: No cyanosis, or edema. BACK: Nontender without obvious deformity. No CVA tenderness. Neuro: Awake and alert. A/P Assessment and Plan 1. DKA- resolving 2. Anion gap metabolic acidosis...improving 3. History of type 1 diabetes mellitus. 4. Chest pain, resolved. 5. Anemia 6. Hypothyroidism. 7. Hyperlipidemia. PLAN: Neuro: Awake, alert. Pulm: Oxygen p.r.n. to maintain sats above 92%. CV: Monitor HR and BP and maintain MAP greater 65 mmHg. : Monitor renal function, intake and output and electrolyte replacement per protocol. On D5NS@200 ml/hr per DKA protocol. Monitor BMP, Mg, Phos Q6 Endo: On insulin drip once AG is closed will transition to SSI and long acting insulin. Monitor beta-hydroxybutyrate q. 12-hour( 6.1 this morning) Continue with Synthroid 115 micrograms p.o. daily. Check TSH level. ID: Monitor for signs of infection(fever and WBC) Panculture if spikes a fever. GI: on Protonix 40 mg p.o. daily. Start PO diabetic diet once off insulin drip. Heme: Monitor CBC GI prophylaxis with Protonix 40 milligrams daily and DVT prophylaxis with SCDs and heparin subcu. Addendum: DKA resolved, AG closed will transition to SSI, Levemir insulin and start PO diabetic diet. Will sign off and transfer care to Dr. Brady service. Level 3 Marlene Spear MD December 16, 2016 07:55
[2016-12-16] MEDS ORDERED: SODIUM PHOSPHATE INJ 15 MMOL in SODIUM CHLORIDE 0.9% INJ 150 ML IV ONE (10:15)
[2016-12-16 10:48] LABS: BICARBONATE 20.1 MEQ/L (21.0-32.0); MAGNESIUM 1.9 MG/DL (1.5-2.5); POTASSIUM 3.5 MEQ/L (3.5-5.1)
[2016-12-16] MEDS ORDERED: DEXTROSE 50% IN WATER 50 ML VIAL(D50) IV PRN (11:00)
[2016-12-16] MEDS ORDERED: GLUCAGON 1 MG/ML VIAL OTHER PRN (11:00)
[2016-12-16] MEDS: INSULIN DETEMIR 100 UNITS/ML VIAL SQ SCH ×2 (11:26→21:00)
[2016-12-16] MEDS: INSULIN NovoLIN REGULAR SUPPLEMENTAL SCALE SQ SCH ×4 (11:27→23:00)
[2016-12-16 11:31] LABS: BETA-HYDROXYBUTYRATE 0.75 MMOL/L (0.00-0.39)
[2016-12-16] MEDS: ONDANSETRON HCL 4 MG/2 ML VIAL IVP PRN (13:42)
[2016-12-16 14:38] LABS: BETA-HYDROXYBUTYRATE 3.11 MMOL/L (0.00-0.39); BICARBONATE 18.7 MEQ/L (21.0-32.0); MAGNESIUM 1.9 MG/DL (1.5-2.5); POTASSIUM 3.4 MEQ/L (3.5-5.1)
[2016-12-16] MEDS ORDERED: POTASSIUM CHLOR 40 MEQ PREMIX 100 ML IV PRN ×2 (15:45)
[2016-12-16] MEDS ORDERED: POTASSIUM CHLOR 20 MEQ PREMIX 100 ML IV PRN (15:45)
[2016-12-16] MEDS ORDERED: POTASSIUM PHOSPHATE MONOBASIC 500 MG TAB PO/TUBE PRN (15:45)
[2016-12-16] MEDS ORDERED: SODIUM PHOSPHATE INJ 30 MMOL in SODIUM CHLOR 0.9% 250 ML INJ 240 ML IV PRN (15:45)
[2016-12-16] MEDS ORDERED: MAGNESIUM OXIDE 400 MG TAB PO PRN (15:45)
[2016-12-16] MEDS ORDERED: MAGNESIUM SULFATE INJ 2 GM in SODIUM CHLORIDE 0.9% INJ 96 ML IV PRN (15:45)
[2016-12-16] MEDS ORDERED: MAGNESIUM SULFATE INJ 4 GM in SODIUM CHLORIDE 0.9% INJ 92 ML IV PRN (15:45)
[2016-12-16] MEDS ORDERED: POTASSIUM CHLORIDE 25 MEQ EFFERVESCENT TAB PO PRN (15:45)
[2016-12-16] MEDS: POTASSIUM PHOSPHATE MONOBASIC 500 MG TAB PO PRN ×2 (16:14→18:01)
[2016-12-16] MEDS ORDERED: ACETAMINOPHEN 1000 MG/100 ML VIAL IV ONE (23:15)
[2016-12-16] MEDS ORDERED: METOCLOPRAMIDE HCL 10 MG/2 ML VIAL IM PRN (23:15)
[2016-12-16] MEDS: FAMOTIDINE 20 MG/2 ML VIAL IV PUSH SCH (23:23)
[2016-12-17] VITALS (13 sets, daily range): BP systolic 125–150; BP diastolic 67–90; PULSE 77–96; RESP 16–21; TEMP 98.3–98.6; O2SAT 97–99
[2016-12-17] MEDS: INSULIN NovoLIN REGULAR SUPPLEMENTAL SCALE SQ SCH ×6 (03:00→22:43)
[2016-12-17] MEDS: CHLORHEXIDINE GLUCONATE 2 % 1 PACK (2 CLOTHS) TOP SCH (04:00)
[2016-12-17] MEDS: LEVOTHYROXINE SODIUM 150 MCG TAB PO SCH (05:33)
[2016-12-17 05:54] LABS: AUTOMATED NEUTROPHIL # 4.9 TH/MM3 (1.8-7.7); BASOPHIL # 0.1 TH/MM3 (0-0.2); EOSINOPHIL # 0.2 TH/MM3 (0-0.4); EOSINOPHIL % 2.4 % (0.0-4.0); HEMATOCRIT 31.2 % (35.0-46.0); HEMO FLAGS DIFF FINAL; LYMPH % 21.8 % (9.0-44.0); LYMPHOCYTE # 1.7 TH/MM3 (1.0-4.8); MEAN CELL VOLUME 83.1 FL (80.0-100.0); MEAN CORPUSCULAR HEMOGLOBIN 27.1 PG (27.0-34.0); MEAN CORPUSCULAR HGB CONC 32.6 % (32.0-36.0); MONO % 10.2 % (0.0-8.0); NEUT % 64.6 % (16.0-70.0); PLATELET COUNT 287 TH/MM3 (150-450); RED BLOOD COUNT 3.76 MIL/MM3 (4.00-5.30); RED CELL DISTRIBUTION WIDTH 15.3 % (11.6-17.2); WHITE BLOOD COUNT 7.6 TH/MM3 (4.0-11.0)
[2016-12-17 06:07] LABS: BICARBONATE 23.3 MEQ/L (21.0-32.0); MAGNESIUM 1.9 MG/DL (1.5-2.5)
[2016-12-17 06:10] LABS: POTASSIUM 2.7 MEQ/L (3.5-5.1)
[2016-12-17] MEDS: POTASSIUM CHLOR 20 MEQ PREMIX 100 ML IV PRN ×4 (06:36→12:48)
[2016-12-17] MEDS: LOSARTAN 25 MG TAB PO SCH (08:12)
[2016-12-17] MEDS: INSULIN DETEMIR 100 UNITS/ML VIAL SQ SCH ×2 (08:12→18:02)
[2016-12-17] MEDS: PRAVASTATIN SOD 10 MG TAB PO SCH (08:12)
[2016-12-17] MEDS: SODIUM CHLORIDE 0.9% FLUSH 10 ML FLUSH IV FLUSH SCH ×2 (08:13→19:54)
[2016-12-17] MEDS: ONDANSETRON HCL 4 MG/2 ML VIAL IVP PRN (08:21)
[2016-12-17] MEDS ORDERED: FAMOTIDINE 20 MG TAB PO SCH (09:00)
[2016-12-17] MEDS: FAMOTIDINE 20 MG/2 ML VIAL IV PUSH SCH (10:55)
--- NOTE | 2016-12-17 13:58 | HHI.PR ---
Subjective Remarks Pt reports that she is still having some issues with epigastric pain associated with food intake. She states that this is the pain that brought her to the ED and thought that she was having chest pain. She denies any reflux or dyspepsia. Pt feels like food gets hung up or stuck in the lower chest/epigastric area. Pt reports that she had been taking Ibuprofen 600mg Q6H for the last 2 weeks prior to admission for a tooth ache. Pts blood sugars have been poorly controlled at home. She states that her last Hgb A1C was 10. She normally takes Levemir 15units BID but states that her blood sugars during the night have been running low at home. Objective Vitals Vital Signs Date Time Temp Pulse Resp B/P Pulse Ox O2 Delivery O2 Flow Rate FiO2 12/17/16 12:00 98.4 83 17 146/90 99 12/17/16 08:00 84 12/17/16 08:00 98.3 84 20 144/85 98 12/17/16 06:00 82 12/17/16 04:00 80 16 129/67 97 12/17/16 04:00 80 12/17/16 02:00 81 12/17/16 00:00 96 12/17/16 00:00 98.6 96 16 125/68 99 12/16/16 22:00 88 12/16/16 20:00 93 12/16/16 20:00 99.4 93 16 135/72 97 12/16/16 18:00 93 12/16/16 16:00 88 12/16/16 16:00 98.3 88 16 129/71 98 12/16/16 14:00 92 12/16/16 12/16/16 12/17/16 15:00 23:00 07:00 Intake Total 1828 ml 510 ml 300 ml Output Total 400 ml 0 ml 500 ml Balance 1428 ml 510 ml -200 ml Intake Oral 480 ml 500 ml 200 ml IV Total 1348 ml 10 ml 100 ml Output Urine Total 400 ml 0 ml 500 ml # Voids 1 # Bowel Movements 0 0 Result Diagram: 12/17/16 0457 12/17/16 0451 Other Results Laboratory Tests Test 12/15/16 12/15/16 12/15/16 12/16/16 14:18 14:54 19:27 00:11 Blood Gas Puncture Site LT RADIAL Blood Gas Patient Temperature 98.6 Blood Gas HCO3 7 mmol/L Blood Gas Base Excess -20.6 mmol/L Blood Gas Oxygen Saturation 95 % Arterial Blood pH 7.17 Arterial Blood Partial 19 mmHg Pressure CO2 Arterial Blood Partial 115 mmHG Pressure O2 Arterial Blood Oxygen Content 15.6 Vol % Arterial Blood 1.9 % Carboxyhemoglobin Arterial Blood Methemoglobin 0.9 % Blood Gas Hemoglobin 11.5 G/DL Oxygen Delivery Device ROOM AIR Blood Gas Inspired Oxygen 21 % Nasal Screen MRSA (PCR) MRSA NOT DETECTED Sodium Level 141 MEQ/L 142 MEQ/L Potassium Level 4.1 MEQ/L 4.0 MEQ/L Chloride Level 111 MEQ/L 110 MEQ/L Carbon Dioxide Level 16.7 MEQ/L 14.6 MEQ/L Anion Gap 13 MEQ/L 17 MEQ/L Blood Urea Nitrogen 12 MG/DL 11 MG/DL Creatinine 1.00 MG/DL 0.87 MG/DL Estimat Glomerular Filtration 59 ML/MIN 69 ML/MIN Rate Random Glucose 128 MG/DL 230 MG/DL Calcium Level 7.9 MG/DL 7.5 MG/DL Phosphorus Level 0.9 MG/DL 1.8 MG/DL Magnesium Level 1.9 MG/DL 1.9 MG/DL Total Creatine Kinase 59 U/L Troponin I LESS THAN 0.02 NG/ML B-Hydroxybutyrate 6.11 MMOL/L Test 12/16/16 12/16/16 12/16/16 12/17/16 05:55 10:00 13:50 04:51 White Blood Count 10.2 TH/MM3 Red Blood Count 3.83 MIL/MM3 Hemoglobin 10.5 GM/DL Hematocrit 32.2 % Mean Corpuscular Volume 84.3 FL Mean Corpuscular Hemoglobin 27.6 PG Mean Corpuscular Hemoglobin 32.7 % Concent Red Cell Distribution Width 15.4 % Platelet Count 364 TH/MM3 Mean Platelet Volume 7.1 FL Neutrophils (%) (Auto) 78.7 % Lymphocytes (%) (Auto) 9.3 % Monocytes (%) (Auto) 10.4 % Eosinophils (%) (Auto) 0.7 % Basophils (%) (Auto) 0.9 % Neutrophils # (Auto) 8.0 TH/MM3 Lymphocytes # (Auto) 1.0 TH/MM3 Monocytes # (Auto) 1.1 TH/MM3 Eosinophils # (Auto) 0.1 TH/MM3 Basophils # (Auto) 0.1 TH/MM3 CBC Comment DIFF FINAL Differential Comment Sodium Level 144 MEQ/L 143 MEQ/L 144 MEQ/L 142 MEQ/L Potassium Level 3.6 MEQ/L 3.5 MEQ/L 3.4 MEQ/L 2.7 MEQ/L Chloride Level 113 MEQ/L 114 MEQ/L 111 MEQ/L 108 MEQ/L Carbon Dioxide Level 17.3 MEQ/L 20.1 MEQ/L 18.7 MEQ/L 23.3 MEQ/L Anion Gap 14 MEQ/L 9 MEQ/L 14 MEQ/L 11 MEQ/L Blood Urea Nitrogen 10 MG/DL 8 MG/DL 7 MG/DL 4 MG/DL Creatinine 0.77 MG/DL 0.89 MG/DL 0.65 MG/DL 0.45 MG/DL Estimat Glomerular Filtration 80 ML/MIN 68 ML/MIN 97 ML/MIN 149 ML/MIN Rate Random Glucose 198 MG/DL 181 MG/DL 223 MG/DL 103 MG/DL Calcium Level 7.5 MG/DL 7.8 MG/DL 7.5 MG/DL 7.7 MG/DL Phosphorus Level 1.2 MG/DL 0.7 MG/DL 1.8 MG/DL 1.8 MG/DL Magnesium Level 2.0 MG/DL 1.9 MG/DL 1.9 MG/DL 1.9 MG/DL Thyroid Stimulating Hormone 1.580 uIU/ML 3rd Gen B-Hydroxybutyrate 0.75 MMOL/L 3.11 MMOL/L Test 12/17/16 04:57 White Blood Count 7.6 TH/MM3 Red Blood Count 3.76 MIL/MM3 Hemoglobin 10.2 GM/DL Hematocrit 31.2 % Mean Corpuscular Volume 83.1 FL Mean Corpuscular Hemoglobin 27.1 PG Mean Corpuscular Hemoglobin 32.6 % Concent Red Cell Distribution Width 15.3 % Platelet Count 287 TH/MM3 Mean Platelet Volume 7.4 FL Neutrophils (%) (Auto) 64.6 % Lymphocytes (%) (Auto) 21.8 % Monocytes (%) (Auto) 10.2 % Eosinophils (%) (Auto) 2.4 % Basophils (%) (Auto) 1.0 % Neutrophils # (Auto) 4.9 TH/MM3 Lymphocytes # (Auto) 1.7 TH/MM3 Monocytes # (Auto) 0.8 TH/MM3 Eosinophils # (Auto) 0.2 TH/MM3 Basophils # (Auto) 0.1 TH/MM3 CBC Comment DIFF FINAL Differential Comment Imaging Last Impressions CT Angiography 12/15/16 0749 Signed Impressions: Service Date/Time: Thursday, December 15, 2016 08:13 - CONCLUSION: 1. No PE is visualized. 2. Additionally, no acute finding is identified within the chest. Please note that the complete lung bases were not imaged on this examination. Geovanny Camilo MD Chest X-Ray 12/15/16 0639 Signed Impressions: Service Date/Time: Thursday, December 15, 2016 06:50 - CONCLUSION: No acute disease. Gómez Chaudhry MD Objective Remarks General: NAD, AAOx3 Chest: CTA Cardiac: Regular Abd: +BS, soft ND/NT Ext: No edema A/P Problem List: (1) DKA (diabetic ketoacidoses) Status: Acute Plan: - Pt is a 46 y/o with type 1 diabetes mellitus for the last 25 years who was admitted to the hospital with chest pain and found to be in DKA with a blood sugar of 542 and anion gap of 27. Pt also had a bicarb of 9.7 and was hyponatremic with sodium level of 131. - Pt was started on Insulin gtt until the AG had improved. Pt was transitioned to Levemir 5 units Q12H and NovoLog SSI. - Pt has been receiving IVFs per protocol and electrolyte replacement per protocol - Critical care medicine has signed off. - Pt reports that she normally takes Levemir 15 units Q12H and NovoLog SSI at home. - Pt has had some night time low blood sugars but during the day her readings are still high. - We will continue on Levemir 5 units at night and then increase her daytime Levemir to 15 units in the morning. - Cont. accu checks - She will need outpt followup with Endocrinology - Her hemoglobin A1c is 10.3. - Diabetic diet (2) Chest pain Status: Acute Plan: - Serial troponin are negative x2. - CT angiography with no evidence of PE. - Chest x-ray showed no acute disease as well. - Pt describes more pain related to food intake in the lower chest. - She has some issues with carbonated beverages and with solid foods. - Pt has had some slight improvement with Pepcid IV Q12 - Change Pepcid to Protonix 40mg po BID - Add Simethicone 125mg Q8H - Barium swallow - Consider GI consult if any evidence of stricture (3) HTN (hypertension) Status: Acute Plan: - Continue losartan (4) Hypothyroid Status: Chronic Plan: - Continue Synthroid Assessment and Plan Patient examined. Assessment and plan formulated with Lily Young PA-C. I agree with the above. dka resolved poor dm control. basal and ssi started. odynophagia and ant cp after eating."food/water gets stuck' barium swallow ordered and shows distal esophagus narrowing and gerd. ppi started. simethicone. consult gi for egd transfer out of icu. Problem Qualifiers (1) DKA (diabetic ketoacidoses): Qualified Code: E10.10 - Diabetic ketoacidosis without coma associated with type 1 diabetes mellitus (2) Chest pain: Qualified Code: R07.9 - Chest pain, unspecified type (3) HTN (hypertension): Qualified Code: I10 - Essential hypertension (4) Hypothyroid: Qualified Code: E03.9 - Hypothyroidism, unspecified type Lily Young December 17, 2016 13:58 Rob Seo MD December 17, 2016 20:39
[2016-12-17] MEDS: SIMETHICONE 125 MG CHEWABLE TAB PO SCH ×2 (14:58→21:01)
--- NOTE | 2016-12-17 15:12 | RADRPT ---
EXAM DATE/TIME: 12/17/2016 14:21 [place] COMPARISON: No previous studies available for comparison. INDICATIONS : Dysphagia. FLUORO TIME: 2.2 minutes IMAGE COUNT: 21 CONTRAST: 1. Liquid E-Z Paque Barium Sulfate (60% w/v, 41% w.w) MEDICAL HISTORY : None. SURGICAL HISTORY : None. ENCOUNTER: Initial ACUITY: 3 days PAIN SCORE: 0/10 LOCATION: Esophagus. FINDINGS: Air-contrast views of the hypopharynx demonstrate a normal mucosal surface without filling defect. R apid sequence images of the hypopharynx and cervical esophagus during the passage of barium demonstra te a normal swallowing function. No evidence of aspiration. There some mild degenerative arthritis w ith anterior osteophytes at C5-6. Multiphasic examination of the esophagus demonstrates no esophagea l fold thickening, ulceration, or filling defect. There some mild smooth narrowing of the distal esop hagus at the GE junction. This does not restrict the flow of contrast. There is a mild delay in trans it of the barium tablet cross this area. In the supine position there is moderate gastroesophageal re flux from the GE junction up to the thoracic inlet. There are tertiary contractions characteristic of esophageal dysmotility.. CONCLUSION: 1. Focal smooth narrowing of the distal esophagus at the level of the GE junction. 2. Moderate gastroesophageal reflux in the supine position with esophageal dysmotility. 3. Focal degenerative changes with anterior osteophytes at C5-6. Jose Ku MD on December 17, 2016 at 15:08 Board Certified Radiologist. This report was verified electronically.
--- NOTE | 2016-12-17 17:03 | PD.CONS ---
HPI History of Present Illness This is a 46 year old [lady] with hx IDDM presented to the ER 3 d ago with chest pain and epigastric pain, was found to be in DKA on arrival. The pain started friday night, she took ASA and tums and didnt get relief. The pain was sharp and became worse after eating. She was also having bolus sensation and regurgitation of undigested food. She is able to drink water and tea but could not tolerate a soda. Denies acid reflux, change bowel habits, weight loss , blood in stool, tarry stool, blood in emesis. Never had colonoscopy or EGD. Never had this problem before. (Jia Chanel) PFSH Past Medical History IDDM hypothyroid Past Surgical History c section x 2 (Jia Chanel) Coded Allergies: Demerol (Verified Allergy, Severe, Hives, 12/15/16) Lisinopril (Verified Allergy, Intermediate, COUGH, 12/15/16) Family History breast ca CVD Social History occasional ETOH, no tobacco or illicit drugs (Jia Chanel) Review of Systems Constitutional: DENIES: Fever Eyes: DENIES: Blurred vision Ears, nose, mouth, throat: DENIES: Hearing loss Respiratory: DENIES: Cough Cardiovascular: DENIES: Chest pain Gastrointestinal: COMPLAINS OF: Abdominal pain, Vomiting, Difficulty Swallowing , Odynophagia, DENIES: Black stools, Bloody stools, Constipation, Diarrhea, Nausea Genitourinary: DENIES: Hematuria Musculoskeletal: DENIES: Muscle aches Integumentary: DENIES: Rash Hematologic/lymphatic: DENIES: Bruising Neurologic: DENIES: Abnormal gait Psychiatric: DENIES: Confusion (Jia Chanel) GI Exam Vitals I&O Vital Signs Date Time Temp Pulse Resp B/P Pulse Ox O2 Delivery O2 Flow Rate FiO2 12/17/16 14:00 93 12/17/16 12:00 83 12/17/16 12:00 98.4 83 17 146/90 99 12/17/16 10:00 86 12/17/16 10:00 86 12/17/16 08:00 84 12/17/16 08:00 98.3 84 20 144/85 98 12/17/16 06:00 82 12/17/16 04:00 80 16 129/67 97 12/17/16 04:00 80 12/17/16 02:00 81 12/17/16 00:00 96 12/17/16 00:00 98.6 96 16 125/68 99 12/16/16 22:00 88 12/16/16 20:00 93 12/16/16 20:00 99.4 93 16 135/72 97 12/16/16 18:00 93 I/O 12/16/16 12/16/16 12/16/16 12/17/16 12/17/16 12/17/16 07:00 15:00 23:00 07:00 15:00 23:00 Intake Total 1148 ml 1828 ml 510 ml 300 ml 1330 ml Output Total 400 ml 400 ml 0 ml 500 ml 425 ml Balance 748 ml 1428 ml 510 ml -200 ml 905 ml Intake Oral 480 ml 500 ml 200 ml 720 ml IV Total 1148 ml 1348 ml 10 ml 100 ml 610 ml Output Urine Total 400 ml 400 ml 0 ml 500 ml 425 ml # Voids 1 # Bowel Movements 0 0 0 Imaging Last Impressions Barium Swallow X-Ray 12/17/16 0000 Signed Impressions: Service Date/Time: Saturday, December 17, 2016 14:21 - CONCLUSION: 1. Focal smooth narrowing of the distal esophagus at the level of the GE junction. 2. Moderate gastroesophageal reflux in the supine position with esophageal dysmotility. 3. Focal degenerative changes with anterior osteophytes at C5-6. Jose Ku MD CT Angiography 12/15/16 0749 Signed Impressions: Service Date/Time: Thursday, December 15, 2016 08:13 - CONCLUSION: 1. No PE is visualized. 2. Additionally, no acute finding is identified within the chest. Please note that the complete lung bases were not imaged on this examination. Geovanny Camilo MD Chest X-Ray 12/15/16 0639 Signed Impressions: Service Date/Time: Thursday, December 15, 2016 06:50 - CONCLUSION: No acute disease. Gómez Chaudhry MD Laboratory Test 12/17/16 12/17/16 04:51 04:57 Sodium Level 142 MEQ/L Potassium Level 2.7 MEQ/L Chloride Level 108 MEQ/L Carbon Dioxide Level 23.3 MEQ/L Anion Gap 11 MEQ/L Blood Urea Nitrogen 4 MG/DL Creatinine 0.45 MG/DL Estimat Glomerular Filtration 149 ML/MIN Rate Random Glucose 103 MG/DL Calcium Level 7.7 MG/DL Phosphorus Level 1.8 MG/DL Magnesium Level 1.9 MG/DL White Blood Count 7.6 TH/MM3 Red Blood Count 3.76 MIL/MM3 Hemoglobin 10.2 GM/DL Hematocrit 31.2 % Mean Corpuscular Volume 83.1 FL Mean Corpuscular Hemoglobin 27.1 PG Mean Corpuscular Hemoglobin 32.6 % Concent Red Cell Distribution Width 15.3 % Platelet Count 287 TH/MM3 Mean Platelet Volume 7.4 FL Neutrophils (%) (Auto) 64.6 % Lymphocytes (%) (Auto) 21.8 % Monocytes (%) (Auto) 10.2 % Eosinophils (%) (Auto) 2.4 % Basophils (%) (Auto) 1.0 % Neutrophils # (Auto) 4.9 TH/MM3 Lymphocytes # (Auto) 1.7 TH/MM3 Monocytes # (Auto) 0.8 TH/MM3 Eosinophils # (Auto) 0.2 TH/MM3 Basophils # (Auto) 0.1 TH/MM3 CBC Comment DIFF FINAL Differential Comment Physical Examination HEENT: EOMI; normocephalic; atraumatic; no jaundice. CHEST: CTA CARDIAC: RRR ABDOMEN: Soft, nondistended, ttp epigastric region; no hepatosplenomegaly; bowel sounds are present in all four quadrants. EXTREMITIES: No clubbing, cyanosis, or edema. SKIN: Normal; no rash; no jaundice. REAL ESTATE ACQUISITION ANALYST: No focal deficits; alert and oriented times three. (Jia Chanel) Assessment and Plan Plan ASSESSMENT - dysphagia - since Friday. Has bolus sensation, regurgitation undigested food, odynophagia at times with solid food. Okay with water and tea. Denies GERD. PLAN - will do EGD with poss dilation - clears today - NPO after midnight - obtain consents - supportive care - further recommendations to follow results above This pt seen by myself and Dr Prabhakar and this note is written on his behalf. (Jia Chanel) Physician Comments Seen and examined, plan as above, for EGD to role stricture/ duncan or obstruction. Risk, benefits and complications explained to the patient. (Ezra Prabhakar MD) Jia Chanel December 17, 2016 17:02 Ezra Prabhakar MD December 18, 2016 08:49
[2016-12-17 17:38] LABS: POTASSIUM 3.7 MEQ/L (3.5-5.1)
[2016-12-17] MEDS: POTASSIUM PHOSPHATE MONOBASIC 500 MG TAB PO PRN (18:02)
[2016-12-17] MEDS: PANTOPRAZOLE SOD 40 MG DELAYED RELEASE TAB PO SCH (19:54)
[2016-12-18] VITALS (8 sets, daily range): BP systolic 133–144; BP diastolic 72–89; PULSE 77–91; RESP 16–20; TEMP 98–98.7; O2SAT 95–100
[2016-12-18] MEDS: INSULIN NovoLIN REGULAR SUPPLEMENTAL SCALE SQ SCH ×6 (03:00→21:17)
[2016-12-18] MEDS: CHLORHEXIDINE GLUCONATE 2 % 1 PACK (2 CLOTHS) TOP SCH (03:43)
[2016-12-18] MEDS: LEVOTHYROXINE SODIUM 150 MCG TAB PO SCH (05:33)
[2016-12-18] MEDS: SIMETHICONE 125 MG CHEWABLE TAB PO SCH ×3 (05:33→21:06)
[2016-12-18] MEDS: INSULIN DETEMIR 100 UNITS/ML VIAL SQ SCH ×2 (06:53→18:40)
[2016-12-18 07:35] LABS: AUTOMATED NEUTROPHIL # 3.5 TH/MM3 (1.8-7.7); BASOPHIL # 0.1 TH/MM3 (0-0.2); BASOPHIL % 1.1 % (0.0-2.0); EOSINOPHIL # 0.3 TH/MM3 (0-0.4); EOSINOPHIL % 5.2 % (0.0-4.0); HEMATOCRIT 33.7 % (35.0-46.0); HEMO FLAGS DIFF FINAL; LYMPH % 25.6 % (9.0-44.0); LYMPHOCYTE # 1.5 TH/MM3 (1.0-4.8); MEAN CELL VOLUME 84.5 FL (80.0-100.0); MEAN CORPUSCULAR HEMOGLOBIN 26.8 PG (27.0-34.0); MEAN CORPUSCULAR HGB CONC 31.8 % (32.0-36.0); MONO % 10.5 % (0.0-8.0); NEUT % 57.6 % (16.0-70.0); PLATELET COUNT 277 TH/MM3 (150-450); RED BLOOD COUNT 3.99 MIL/MM3 (4.00-5.30); RED CELL DISTRIBUTION WIDTH 15.1 % (11.6-17.2)
[2016-12-18 07:57] LABS: BICARBONATE 24.4 MEQ/L (21.0-32.0); MAGNESIUM 2.1 MG/DL (1.5-2.5); POTASSIUM 3.5 MEQ/L (3.5-5.1)
[2016-12-18] MEDS ORDERED: PROPOFOL 200 MG/20 ML AMP IV ONE (09:02)
--- NOTE | 2016-12-18 09:13 | GIPROC ---
[facility] [address] [facility]. [facility] [place], [address] EGD PROCEDURE REPORT EXAM DATE: 12/18/2016 PATIENT NAME: Belem Song MR #: [id number] BIRTHDATE: 1970 ATTENDING: Ezra Prabhakar MD ORDER #: [id number] BLAST FURNACE CHECKER: Mohit Cobos and Shanna Henry STATUS: inpatient INDICATIONS: The patient is a 46 yr old female here for an EGD due to dyspepsia and dysphagia PROCEDURE PERFORMED: EGD w/ biopsy MEDICATIONS: None and Per Anesthesia. TOPICAL ANESTHETIC: none CONSENT: The patient understands the risks and benefits of the procedure and understands that these risks include, but are not limited to: sedation, allergic reaction, infection, perforation and/or bleeding. Alternative means of evaluation and treatment include, among others: physical exam, x-rays, and/or surgical intervention. The patient elects to proceed with this endoscopic procedure. medical equipment was checked for proper function. Hand hygiene and appropriate measures for infection prevention was taken. After the risks, benefits and alternatives of the procedure were thoroughly explained, Informed consent was verified, confirmed and timeout was successfully executed by the treatment team. The patient was anesthetized with topical anesthesia and the Pentax EG-[id number] endoscope was introduced through the mouth and advanced to the second portion of the duodenum. Retroflexion was performed and was normal The gastroscope was then slowly withdrawn and removed. ESOPHAGUS: The esophagus was otherwise normal. STOMACH: There was mild gastritis in the gastric antrum. Multiple biopsies were performed using cold forceps. Sample sent for histology. DUODENUM: Two small non-bleeding non-bleeding, round and clean-based ulcers were found in the duodenal bulb. Biopsies were taken around the ulcers. ADVERSE EVENTS: There were no complications. IMPRESSIONS: 1. The esophagus was otherwise normal 2. There was mild gastritis in the gastric antrum; multiple biopsies were performed 3. Two small non-bleeding ulcers were found in the duodenal bulb; biopsies were taken 4. Retroflexion was performed and was normal RECOMMENDATIONS: 1. Await biopsy results. Biopsy results will not be ready for 7-10 days. If you don't hear from us in two weeks, call our office for biopsy results. 2. Start PPI PATIENT CONDITION: stable DISPOSITION: Observation REPEAT EXAM: Return as needed for EGD pending biopsy results Ezra Prabhakar MD eSigned: Ezra Prabhakar MD 12/18/2016 9:12 AM cc: PATIENT NAME: Belem Song MR#: [id number]
[2016-12-18] MEDS ORDERED: POTASSIUM CHLORIDE 20 MEQ CONTROLLED RELEASE TAB PO ONE (09:30)
[2016-12-18] MEDS: PANTOPRAZOLE SOD 40 MG DELAYED RELEASE TAB PO SCH ×2 (09:56→21:06)
[2016-12-18] MEDS: LOSARTAN 25 MG TAB PO SCH (09:56)
[2016-12-18] MEDS: SODIUM CHLORIDE 0.9% FLUSH 10 ML FLUSH IV FLUSH SCH ×2 (09:57→21:07)
[2016-12-18] MEDS: PRAVASTATIN SOD 10 MG TAB PO SCH (09:58)
--- NOTE | 2016-12-18 20:08 | HHI.PR ---
Subjective Remarks doing ok. no new complaints Objective Vitals heent neg heart reg lung cta abds /nt ext no edema Vital Signs Date Time Temp Pulse Resp B/P Pulse Ox O2 Delivery O2 Flow Rate FiO2 12/18/16 16:00 98.7 90 20 138/86 98 12/18/16 12:00 98.4 83 20 141/81 97 12/18/16 09:31 90 18 128/84 96 12/18/16 09:21 80 18 125/84 98 12/18/16 09:11 98.2 82 18 125/76 97 12/18/16 08:45 98.0 82 17 133/72 95 12/18/16 08:19 97 Room Air 12/18/16 08:00 80 12/18/16 08:00 98.4 80 20 143/88 97 12/18/16 04:00 98.0 82 17 133/72 95 12/18/16 00:29 98.2 77 16 144/84 99 12/17/16 22:45 Nasal Cannula 2.00 12/17/16 22:15 98.5 79 18 150/79 99 12/17/16 22:02 77 12/17/16 12/17/16 12/18/16 15:00 23:00 07:00 Intake Total 1330 ml 360 ml 480 ml Output Total 425 ml 600 ml Balance 905 ml 360 ml -120 ml Intake Oral 720 ml 360 ml 480 ml IV Total 610 ml Output Urine Total 425 ml 600 ml # Voids 1 # Bowel Movements 0 0 Result Diagram: 12/18/16 0600 12/18/16 [address] Angiography 12/15/16 0749 Signed Impressions: Service Date/Time: Thursday, December 15, 2016 08:13 - CONCLUSION: 1. No PE is visualized. 2. Additionally, no acute finding is identified within the chest. Please note that the complete lung bases were not imaged on this examination. Geovanny Camilo MD Chest X-Ray 12/15/16 0639 Signed Impressions: Service Date/Time: Thursday, December 15, 2016 06:50 - CONCLUSION: No acute disease. Gómez Chaudhry MD A/P Problem List: (1) DKA (diabetic ketoacidoses) Status: Acute Plan: - Pt is a 46 y/o with type 1 diabetes mellitus for the last 25 years who was admitted to the hospital with chest pain and found to be in DKA with a blood sugar of 542 and anion gap of 27. Pt also had a bicarb of 9.7 and was hyponatremic with sodium level of 131. - Pt was started on Insulin gtt until the AG had improved. Pt was transitioned to Levemir 5 units Q12H and NovoLog SSI. - Pt has been receiving IVFs per protocol and electrolyte replacement per protocol - Critical care medicine has signed off. - Pt reports that she normally takes Levemir 15 units Q12H and NovoLog SSI at home. - Pt has had some night time low blood sugars but during the day her readings are still high. - We will continue on Levemir 5 units at night and then increase her daytime Levemir to 15 units in the morning. - Cont. accu checks - She will need outpt followup with Endocrinology - Her hemoglobin A1c is 10.3. -advance diet possible d/c tomorow she was having some sensation of food getting stuck in throat. barium swallow shows apparent stricturing distally and gerd. egd today.....duodenal ulcers and gastritis. simethicone and ppi. fu bx's and f/u gi. (2) Chest pain Status: Acute Plan: - Serial troponin are negative x2. - CT angiography with no evidence of PE. - Chest x-ray showed no acute disease as well. - Pt describes more pain related to food intake in the lower chest. - She has some issues with carbonated beverages and with solid foods. - Pt has had some slight improvement with Pepcid IV Q12 see above (3) HTN (hypertension) Status: Acute Plan: - Continue losartan (4) Hypothyroid Status: Chronic Plan: - Continue Synthroid Problem Qualifiers (1) DKA (diabetic ketoacidoses): Qualified Code: E10.10 - Diabetic ketoacidosis without coma associated with type 1 diabetes mellitus (2) Chest pain: Qualified Code: R07.9 - Chest pain, unspecified type (3) HTN (hypertension): Qualified Code: I10 - Essential hypertension (4) Hypothyroid: Qualified Code: E03.9 - Hypothyroidism, unspecified type Rob Seo MD December 18, 2016 20:08
[2016-12-19] VITALS: BP 132/79; PULSE 84; RESP 20; TEMP 98; O2SAT 98
[2016-12-19] MEDS: INSULIN NovoLIN REGULAR SUPPLEMENTAL SCALE SQ SCH ×5 (02:03→17:55)
[2016-12-19 04:00] VITALS: BP 134/77; PULSE 83; RESP 20; TEMP 98.4; O2SAT 98
[2016-12-19] MEDS: CHLORHEXIDINE GLUCONATE 2 % 1 PACK (2 CLOTHS) TOP SCH (04:00)
[2016-12-19] MEDS: SIMETHICONE 125 MG CHEWABLE TAB PO SCH ×3 (05:49→20:47)
[2016-12-19] MEDS: LEVOTHYROXINE SODIUM 150 MCG TAB PO SCH (05:49)
[2016-12-19] MEDS: INSULIN DETEMIR 100 UNITS/ML VIAL SQ SCH ×2 (06:59→17:53)
[2016-12-19 08:00] VITALS: BP 138/86; PULSE 75; PULSE 85; RESP 20; TEMP 98; O2SAT 96
[2016-12-19] MEDS: PRAVASTATIN SOD 10 MG TAB PO SCH (09:34)
[2016-12-19] MEDS: PANTOPRAZOLE SOD 40 MG DELAYED RELEASE TAB PO SCH ×2 (09:34→20:46)
[2016-12-19] MEDS: LOSARTAN 25 MG TAB PO SCH (09:34)
[2016-12-19] MEDS: SODIUM CHLORIDE 0.9% FLUSH 10 ML FLUSH IV FLUSH SCH ×2 (09:36→20:47)
[2016-12-19 12:00] VITALS: BP 138/87; PULSE 95; RESP 20; TEMP 98.4; O2SAT 98
--- NOTE | 2016-12-19 12:49 | HHI.PR ---
Subjective Remarks Pt reports that she is overall feeling better Her blood glucose last night was stable. Pt blood sugar ran high yesterday because she did not get her Levemir in the morning due to being NPO for EGD yesterday. Objective Vitals Vital Signs Date Time Temp Pulse Resp B/P Pulse Ox O2 Delivery O2 Flow Rate FiO2 12/19/16 12:00 98.4 95 20 138/87 98 12/19/16 08:00 75 12/19/16 08:00 96 Room Air 12/19/16 08:00 98.0 85 20 138/86 96 12/19/16 04:00 98.4 83 20 134/77 98 12/19/16 00:00 98.0 84 20 132/79 98 12/18/16 21:15 Room Air 12/18/16 20:00 98.4 91 20 142/89 100 12/18/16 19:55 87 12/18/16 16:00 98.7 90 20 138/86 98 12/18/16 12/18/16 12/19/16 15:00 23:00 07:00 Intake Total 460 ml 120 ml Balance 460 ml 120 ml Intake Oral 360 ml 120 ml Other 100 ml # Voids 2 2 # Bowel Movements 1 0 Result Diagram: 12/18/16 0600 12/18/16 0600 Other Results Laboratory Tests Test 12/17/16 12/18/16 17:02 06:00 Potassium Level 3.7 MEQ/L 3.5 MEQ/L Phosphorus Level 2.0 MG/DL White Blood Count 6.0 TH/MM3 Red Blood Count 3.99 MIL/MM3 Hemoglobin 10.7 GM/DL Hematocrit 33.7 % Mean Corpuscular Volume 84.5 FL Mean Corpuscular Hemoglobin 26.8 PG Mean Corpuscular Hemoglobin 31.8 % Concent Red Cell Distribution Width 15.1 % Platelet Count 277 TH/MM3 Mean Platelet Volume 7.6 FL Neutrophils (%) (Auto) 57.6 % Lymphocytes (%) (Auto) 25.6 % Monocytes (%) (Auto) 10.5 % Eosinophils (%) (Auto) 5.2 % Basophils (%) (Auto) 1.1 % Neutrophils # (Auto) 3.5 TH/MM3 Lymphocytes # (Auto) 1.5 TH/MM3 Monocytes # (Auto) 0.6 TH/MM3 Eosinophils # (Auto) 0.3 TH/MM3 Basophils # (Auto) 0.1 TH/MM3 CBC Comment DIFF FINAL Differential Comment Sodium Level 139 MEQ/L Chloride Level 106 MEQ/L Carbon Dioxide Level 24.4 MEQ/L Anion Gap 9 MEQ/L Blood Urea Nitrogen 4 MG/DL Creatinine 0.36 MG/DL Estimat Glomerular Filtration 192 ML/MIN Rate Random Glucose 110 MG/DL Calcium Level 8.2 MG/DL Magnesium Level 2.1 MG/DL Imaging Last Impressions Barium Swallow X-Ray 12/17/16 0000 Signed Impressions: Service Date/Time: Saturday, December 17, 2016 14:21 - CONCLUSION: 1. Focal smooth narrowing of the distal esophagus at the level of the GE junction. 2. Moderate gastroesophageal reflux in the supine position with esophageal dysmotility. 3. Focal degenerative changes with anterior osteophytes at C5-6. Jose Ku MD CT Angiography 12/15/16 0749 Signed Impressions: Service Date/Time: Thursday, December 15, 2016 08:13 - CONCLUSION: 1. No PE is visualized. 2. Additionally, no acute finding is identified within the chest. Please note that the complete lung bases were not imaged on this examination. Geovanny Camilo MD Chest X-Ray 12/15/16 0639 Signed Impressions: Service Date/Time: Thursday, December 15, 2016 06:50 - CONCLUSION: No acute disease. Gómez Chaudhry MD Objective Remarks General: NAD, AAOx3 Chest: CTA Cardiac: Regular Abd: +BS, soft ND/NT Ext: No edema A/P Problem List: (1) DKA (diabetic ketoacidoses) Status: Acute Plan: - Pt is a 46 y/o with type 1 diabetes mellitus for the last 25 years who was admitted to the hospital with chest pain and found to be in DKA with a blood sugar of 542 and anion gap of 27. Pt also had a bicarb of 9.7 and was hyponatremic with sodium level of 131. - Pt was started on Insulin gtt until the AG had improved. Pt was transitioned to Levemir 5 units Q12H and NovoLog SSI. - Pt has been receiving IVFs per protocol and electrolyte replacement per protocol - Critical care medicine has signed off. - Pt reports that she normally takes Levemir 15 units Q12H and NovoLog SSI at home. - Pt has had some night time low blood sugars but during the day her readings are still high. - We will continue on Levemir 5 units at night and then increase her daytime Levemir to 15 units in the morning. - Cont. accu checks - She will need outpt followup with Endocrinology - Her hemoglobin A1c is 10.3. - Advance diet - Monitor blood sugars during the day today to help determine the dosing at discharge on the Levemir and if stable we will discharge in AM (2) Chest pain Status: Acute Plan: - Serial troponin are negative x2. - CT angiography with no evidence of PE. - Chest x-ray showed no acute disease as well. - Pt describes more pain related to food intake in the lower chest. - She has some issues with carbonated beverages and with solid foods. - Pt has had some slight improvement with Pepcid IV Q12 - She was having some sensation of food getting stuck in throat. - Barium swallow shows apparent stricturing distally and GERD. - Pt had an EGD (12/18/16) - Mild gastritis in the gastric antrum, two small non-bleeding ulcers were found in the duodenal bulb - Cont. Simethicone and PPI. - Followup bx results - Pt will need outpt followup with GI (3) HTN (hypertension) Status: Acute Plan: - Continue losartan (4) Hypothyroid Status: Chronic Plan: - Continue Synthroid Assessment and Plan Patient examined. Assessment and plan formulated with Lily Young PA-C. I agree with the above. adjust levemir dosing. monitor and d/c home if stable tomorrow. she will f/u closely with pcp. gi f/u. Problem Qualifiers (1) DKA (diabetic ketoacidoses): Qualified Code: E10.10 - Diabetic ketoacidosis without coma associated with type 1 diabetes mellitus (2) Chest pain: Qualified Code: R07.9 - Chest pain, unspecified type (3) HTN (hypertension): Qualified Code: I10 - Essential hypertension (4) Hypothyroid: Qualified Code: E03.9 - Hypothyroidism, unspecified type Lily Young Dec 19, 2016 12:49 Rob Seo MD Dec 19, 2016 20:46
[2016-12-19] MEDS: ACETAMINOPHEN 325 MG TAB PO PRN (15:33)
[2016-12-19 16:00] VITALS: BP 146/87; PULSE 87; RESP 20; TEMP 98.2; O2SAT 98
--- NOTE | 2016-12-19 17:45 | HHI.GIFU ---
Subjective Remarks Pt resting comfortably in bed, visiting with family. She has some mild lingering epigastric discomfort but says it is much improved and she is able to eat. (Jia Chanel) Objective Vitals I&O Vital Signs Date Time Temp Pulse Resp B/P Pulse Ox O2 Delivery O2 Flow Rate FiO2 12/19/16 16:00 98.2 87 20 146/87 98 12/19/16 12:00 98.4 95 20 138/87 98 12/19/16 08:00 75 12/19/16 08:00 96 Room Air 12/19/16 08:00 98.0 85 20 138/86 96 12/19/16 04:00 98.4 83 20 134/77 98 12/19/16 00:00 98.0 84 20 132/79 98 12/18/16 21:15 Room Air 12/18/16 20:00 98.4 91 20 142/89 100 12/18/16 19:55 87 I/O 12/18/16 12/18/16 12/18/16 12/19/16 12/19/16 12/19/16 07:00 15:00 23:00 07:00 15:00 23:00 Intake Total 480 ml 460 ml 120 ml 480 ml Output Total 600 ml Balance -120 ml 460 ml 120 ml 480 ml Intake Oral 480 ml 360 ml 120 ml 480 ml Other 100 ml Output Urine Total 600 ml # Voids 2 2 3 # Bowel Movements 0 1 0 Imaging Last Impressions Barium Swallow X-Ray 12/17/16 0000 Signed Impressions: Service Date/Time: Saturday, December 17, 2016 14:21 - CONCLUSION: 1. Focal smooth narrowing of the distal esophagus at the level of the GE junction. 2. Moderate gastroesophageal reflux in the supine position with esophageal dysmotility. 3. Focal degenerative changes with anterior osteophytes at C5-6. Jose Ku MD CT Angiography 12/15/16 0749 Signed Impressions: Service Date/Time: Thursday, December 15, 2016 08:13 - CONCLUSION: 1. No PE is visualized. 2. Additionally, no acute finding is identified within the chest. Please note that the complete lung bases were not imaged on this examination. Geovanny Camilo MD Chest X-Ray 12/15/16 0639 Signed Impressions: Service Date/Time: Thursday, December 15, 2016 06:50 - CONCLUSION: No acute disease. Gómez Chaudhry MD Physical Exam HEENT: EOMI; normocephalic; atraumatic; no jaundice. CHEST: CTA CARDIAC: RRR ABDOMEN: Soft, nondistended, nontender; no hepatosplenomegaly; bowel sounds are present in all four quadrants. EXTREMITIES: No clubbing, cyanosis, or edema. SKIN: Normal; no rash; no jaundice. 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 (Jia Chanel) Assessment and Plan Plan ASSESSMENT - dysphagia - s/p EGD, found mild gastritis, 2 x small non bleeding ulcers duodenal bulb. path benign. since Friday. Has bolus sensation, regurgitation undigested food, odynophagia at times with solid food. Okay with water and tea. Denies GERD. PLAN - ALEX - supportive care - f/u with GI as outpatient in 2w - okay to d/c from GI standpoint This pt seen by myself and Dr Prabhakar and this note is written on his behalf. (Jia Chanel) Physician Comments plan as above, stable from GI point of view. (Ezra Prabhakar MD) Jia Chanel Dec 19, 2016 17:45 Ezra Prabhakar MD Dec 19, 2016 22:48
[2016-12-19 20:00] VITALS: BP 124/79; PULSE 89; PULSE 94; RESP 20; TEMP 98.5; O2SAT 99
[2016-12-19] MEDS: INSULIN ASPART SUPPLEMENTAL SCALE SQ SCH (20:46)
[2016-12-20] VITALS: BP 117/66; PULSE 87; RESP 20; TEMP 98.6; O2SAT 97
[2016-12-20] MEDS: CHLORHEXIDINE GLUCONATE 2 % 1 PACK (2 CLOTHS) TOP SCH (03:28)
[2016-12-20 04:00] VITALS: BP 128/83; PULSE 85; RESP 20; TEMP 98.3; O2SAT 93
[2016-12-20] MEDS: SIMETHICONE 125 MG CHEWABLE TAB PO SCH ×2 (06:03→13:00)
[2016-12-20] MEDS: LEVOTHYROXINE SODIUM 150 MCG TAB PO SCH (06:03)
[2016-12-20] MEDS: INSULIN ASPART SUPPLEMENTAL SCALE SQ SCH ×2 (06:08→12:56)
[2016-12-20] MEDS ORDERED: INSULIN DETEMIR 100 UNITS/ML VIAL SQ SCH (07:00)
[2016-12-20 08:00] VITALS: BP 106/66; PULSE 97; RESP 18; TEMP 98.8; O2SAT 98
[2016-12-20] MEDS: PANTOPRAZOLE SOD 40 MG DELAYED RELEASE TAB PO SCH (08:54)
[2016-12-20] MEDS: LOSARTAN 25 MG TAB PO SCH (08:54)
[2016-12-20] MEDS: PRAVASTATIN SOD 10 MG TAB PO SCH (08:55)
[2016-12-20] MEDS: SODIUM CHLORIDE 0.9% FLUSH 10 ML FLUSH IV FLUSH SCH (08:55)
--- NOTE | 2016-12-20 09:50 | HHI.DCPOC ---
Discharge Care Plan Diagnosis: (1) DKA (diabetic ketoacidoses) (2) HTN (hypertension) (3) Hypothyroid (4) Duodenal ulcer disease Goals to Promote Your Health * To prevent worsening of your condition and complications * To maintain your health at the optimal level Directions to Meet Your Goals Take your medications as prescribed Follow your dietary instruction Follow activity as directed Keep your appointments as scheduled Take your immunizations and boosters as scheduled If your symptoms worsen call your PCP, if no PCP go to Urgent Care Center or Emergency Room Smoking is Dangerous to Your Health. Avoid second hand smoke Call the 24-hour hour crisis hotline for domestic abuse at Rob Seo MD Dec 20, 2016 09:50
--- NOTE | 2016-12-20 09:50 | HHI.PR ---
Subjective Remarks pt wants to go home today says bg dropped to 59 overnight. would like to stop pm dose of levemir. Objective Vitals nad heart reg lung cta abd s/nt ext no edema Vital Signs Date Time Temp Pulse Resp B/P Pulse Ox O2 Delivery O2 Flow Rate FiO2 12/20/16 09:45 Room Air 12/20/16 08:00 98.8 97 18 106/66 98 12/20/16 04:00 98.3 85 20 128/83 93 12/20/16 00:00 98.6 87 20 117/66 97 12/19/16 20:00 98.5 89 20 124/79 99 12/19/16 20:00 94 12/19/16 20:00 Room Air 12/19/16 16:00 98.2 87 20 146/87 98 12/19/16 12:00 98.4 95 20 138/87 98 12/19/16 12/19/16 12/20/16 15:00 23:00 07:00 Intake Total 480 ml 240 ml 12 ml Balance 480 ml 240 ml 12 ml Intake Oral 480 ml 240 ml 12 ml # Voids 3 1 2 # Bowel Movements 0 0 Result Diagram: 12/18/16 0600 12/18/16 0600 Imaging Last Impressions Barium Swallow X-Ray 12/17/16 0000 Signed Impressions: Service Date/Time: Saturday, December 17, 2016 14:21 - CONCLUSION: 1. Focal smooth narrowing of the distal esophagus at the level of the GE junction. 2. Moderate gastroesophageal reflux in the supine position with esophageal dysmotility. 3. Focal degenerative changes with anterior osteophytes at C5-6. Jose Ku MD CT Angiography 12/15/16 0749 Signed Impressions: Service Date/Time: Thursday, December 15, 2016 08:13 - CONCLUSION: 1. No PE is visualized. 2. Additionally, no acute finding is identified within the chest. Please note that the complete lung bases were not imaged on this examination. Geovanny Camilo MD Chest X-Ray 12/15/16 0639 Signed Impressions: Service Date/Time: Thursday, December 15, 2016 06:50 - CONCLUSION: No acute disease. Gómez Chaudhry MD A/P Problem List: (1) DKA (diabetic ketoacidoses) Status: Acute Plan: - Pt is a 46 y/o with type 1 diabetes mellitus for the last 25 years who was admitted to the hospital with chest pain and found to be in DKA with a blood sugar of 542 and anion gap of 27. Pt also had a bicarb of 9.7 and was hyponatremic with sodium level of 131. - Pt was started on Insulin gtt until the AG had improved. Pt was transitioned to Levemir 5 units Q12H and NovoLog SSI. - Pt has been receiving IVFs per protocol and electrolyte replacement per protocol - Critical care medicine has signed off. - Pt reports that she normally takes Levemir 15 units Q12H and NovoLog SSI at home. - Pt has had some night time low blood sugars but during the day her readings are still high. - Her hemoglobin A1c is 10.3. Her bg still get low at night on only 5 units levemir. But daytime bg still 2- 300s. with increase AM dose levemir and stop pm dose. At home she counts carbs and give novolog with meals. she would like to go home today. will check or noon bg and then dc home after. 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 she is also establishing with endocrine in [place]. she will f /u GI for duodenal ulcer. cont ppi. If difficulty swallowing returns then consider dilation. (2) Chest pain Status: Acute Plan: - Serial troponin are negative x2. - CT angiography with no evidence of PE. - Chest x-ray showed no acute disease as well. - Pt describes more pain related to food intake in the lower chest. - She has some issues with carbonated beverages and with solid foods. - Pt has had some slight improvement with Pepcid IV Q12 - She was having some sensation of food getting stuck in throat. - Barium swallow shows apparent stricturing distally and GERD. - Pt had an EGD (12/18/16) - Mild gastritis in the gastric antrum, two small non-bleeding ulcers were found in the duodenal bulb - Cont. Simethicone and PPI. - Followup bx results - Pt will need outpt followup with GI (3) HTN (hypertension) Status: Acute Plan: - Continue losartan (4) Hypothyroid Status: Chronic Plan: - Continue Synthroid Problem Qualifiers (1) DKA (diabetic ketoacidoses): Qualified Code: E10.10 - Diabetic ketoacidosis without coma associated with type 1 diabetes mellitus (2) Chest pain: Qualified Code: R07.9 - Chest pain, unspecified type (3) HTN (hypertension): Qualified Code: I10 - Essential hypertension (4) Hypothyroid: Qualified Code: E03.9 - Hypothyroidism, unspecified type Rob Seo MD Dec 20, 2016 09:50
[2016-12-20] MEDS ORDERED: LEVEMIR SQ ×2 (09:53→12:22)
[2016-12-20] MEDS ORDERED: PANT40TA3 PO (09:53)
[2016-12-20 12:00] VITALS: BP 123/80; PULSE 91; RESP 18; TEMP 97.9; O2SAT 98
--- NOTE | 2016-12-21 13:36 | HHI.DS ---
Discharge Summary Admission Date December 15, 2016 at 12:17 Discharge Date: Dec 20, 2016 Admitting Diagnosis chest pain (1) DKA (diabetic ketoacidoses) Diagnosis: Principal (2) Duodenal ulcer disease Diagnosis: Principal (3) Chest pain Diagnosis: Principal (4) HTN (hypertension) Diagnosis: Secondary (5) Hypothyroid Diagnosis: Secondary Brief History Patient is a pleasant 45-year-old female with history of type 1 diabetes 25 years. Patient was seen by her primary care physician, Dr. Anderson, last week. Patient had a battery of laboratory data performed. Patient reports that her hemoglobin A1c was 10.3. I cannot find this in her [facility] records. However, last hemoglobin A1c (07/20/15 ) was 10.2. Patient's fasting glucose was elevated at 424 (12/04/16), but patient's CO2 was normal at 24. Patient takes NovoLog 8 units before breakfast and 10 units before lunch and dinner. Patient also takes Levemir 15 units in the a.m. and 20 units in the p.m. At last appointment with Dr. Anderson. Patient had stated that she wants to get back in with endocrinology, specifically she wishes to see Cassidy STONE at Dr. Hoffman office. Apparently, patient has previously followed with Cassidy STONE. Patient states that she previously used an insulin pump but this was prior to her last 8 years ago. Patient presented to the ER yesterday evening with complaint of chest pain. Patient states that the chest pain was at her lower sternum and radiated to her left chest. There was no radiation to her shoulder, arm, or jaw. Patient states that the episode started at 9 PM. It was intermittent lasting approximately 15 minutes, and did not resolve until 5 AM this morning when she received morphine in the ER. Patient denies previous such episodes. Patient describes the pain as moderate and associated with nausea and shortness of breath. Patient feels the shortness of breath may have been anxiety. Initially patient attributed the chest pain to indigestion as she was at a graduation event yesterday. Patient took aspirin and Tums with only mild relief. Patient denies any palliating factors. Patient denies any provoking factors patient denies associated vomiting or diaphoresis. Patient was initially admitted to the chest pain center. Dr. Garrido, the attending physician for the chest pain center, noted that the patient's labs were consistent with diabetic ketoacidosis with elevated blood sugar and low CO2. He requested that the patient be transferred to my service and I agreed. CBC/BMP: 12/18/16 0600 12/18/16 0600 Hospital Course - Pt is a 46 y/o with type 1 diabetes mellitus for the last 25 years who was admitted to the hospital with chest pain and found to be in DKA with a blood sugar of 542 and anion gap of 27. Pt also had a bicarb of 9.7 and was hyponatremic with sodium level of 131. - Pt was started on Insulin gtt until the AG had improved. - Pt has been receiving IVFs per protocol and electrolyte replacement per protocol - Pt reports that she normally takes Levemir 15 units Q12H and NovoLog SSI at home. - Pt has had some night time low blood sugars but during the day her readings are still high. - Her hemoglobin A1c is 10.3. -Her bg still get low at night on only 5 units levemir. But daytime bg still 2- 300s. with increase AM dose levemir and stop pm dose. At home she counts carbs and give novolog with meals. she would like to go home today. will check or noon bg and then dc home after. 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 she is also establishing with endocrine in [place]. she will f /u GI for duodenal ulcer. cont ppi. If difficulty swallowing returns then consider dilation. She was advised to start with levemir 30units in morning and have pcp titrate as needed. She had cp after meals on arrival - Serial troponin are negative x2. - CT angiography with no evidence of PE in ED - Chest x-ray showed no acute disease as well. - Pt describes more pain related to food intake in the lower chest. - She has some issues with carbonated beverages and with solid foods. - Pt has had some slight improvement with Pepcid IV Q12 - She was having some sensation of food getting stuck in throat. - Barium swallow shows apparent stricturing distally and GERD. - Pt had an EGD (12/18/16) - Mild gastritis in the gastric antrum, two small non-bleeding ulcers were found in the duodenal bulb - Cont. Simethicone and PPI. - Followup bx results - Pt will need outpt followup with GI Pt Condition on Discharge: Stable Discharge Disposition: Discharge Home Discharge Instructions DIET: Follow Instructions for: Diabetic Diet Activities you can perform: Regular-No Restrictions Follow up Referrals: Gastroenterology - 2 Weeks @ [facility] with Carly Snell MD PCP Follow-up - 2-[address] anderson New Medications: Pantoprazole (Pantoprazole) 40 Mg Tab 40 MG PO Q12HR ulcers #60 TAB Changed Medications: Insulin Detemir Inj (Levemir Inj) 1,000 unit/ 10 ML Vial 30 UNITS SQ DAILY levemir 25 units sq in morning. Blood Sugar Management #0 Ref 0 VIAL (Changed from: 25 UNITS) Continued Medications: Insulin Aspart Inj (Novolog Inj) 1,000 Unit/10 Ml Vial 0 SQ DIRECTED Sliding Scale as directed. Blood Sugar Management #10 Ref 0 ML Levothyroxine (Synthroid) 150 Mcg Tab 150 MCG PO DAILY Thyroid #30 Ref 0 TAB Losartan (Losartan) 25 Mg Tab 25 MG PO DAILY Blood Pressure Management #30 Ref 0 TAB Lovastatin (Lovastatin) 10 Mg Tab 10 MG PO DAILY Cholesterol Management #30 Ref 0 TAB Rob Seo MD Dec 21, 2016 13:36
== END 2016-12-20 15:26 | disposition home or self-care (01) | DRG 638 ==
LOC: NEPE 05:16 → NEDA 08:59 → NEPGCP 09:52 → OBSVTOIN 12:17 → HIMW 14:45 → N04B 12-17 21:46
PROVIDERS: ADMIT Hospitalist; ATTEND Hospitalist
PROC: 0DB68ZX Excision of Stomach, Via Natural or Artificial Opening Endoscopic, Diagnostic (ICD-10-PCS; 2016-12-18)
PROC: 0DB98ZX Excision of Duodenum, Via Natural or Artificial Opening Endoscopic, Diagnostic (ICD-10-PCS; principal; 2016-12-18 08:45)
DX: E10.10 Type 1 diabetes mellitus with ketoacidosis without coma (principal); E87.1 Hypo-osmolality and hyponatremia; K26.9 Duodenal ulcer, unspecified as acute or chronic, without hemorrhage or perforation; R13.10 Dysphagia, unspecified; K29.70 Gastritis, unspecified, without bleeding; E55.9 Vitamin D deficiency, unspecified; I10 Essential (primary) hypertension; R07.9 Chest pain, unspecified; E10.319 Type 1 diabetes mellitus with unspecified diabetic retinopathy without macular edema; R00.0 Tachycardia, unspecified; K21.9 Gastro-esophageal reflux disease without esophagitis; E03.9 Hypothyroidism, unspecified; E78.5 Hyperlipidemia, unspecified; G47.00 Insomnia, unspecified; G43.909 Migraine, unspecified, not intractable, without status migrainosus; Z98.51 Tubal ligation status; Z82.49 Family history of ischemic heart disease and other diseases of the circulatory system; Z79.4 Long term (current) use of insulin; Z80.3 Family history of malignant neoplasm of breast
CPT/HCPCS: 36600; 71010; 71275; 74230; 76937; 80048; 81001; 82010; 82550; 82805; 82948; 83036; 83735; 84100; 84132; 84443; 84484; 84681; 85025; 85379; 85610; 85730; 87641; 88305; 88312; 93005; 96372; 96374; 96375; J0131; J1815; J2270; J2405; J3480; J7030; J7042; J7050; Q9967